=== PATIENT | female | born 1945 | race Caucasian/White ===

== ENCOUNTER → 2023-12-17 07:40 | Outpatient (REF) | payer MEDICARE, SELFPAY | LOC: EMG 07:40 | PROVIDERS: ATTENDING PHYSICIAN Physician Assistant; FAMILY PHYSICIAN Family Medicine | DX: R20.2 Paresthesia of skin (principal); R20.0 Anesthesia of skin; M54.16 Radiculopathy, lumbar region | CPT/HCPCS: 95886; 95911 ==

== ENCOUNTER → 2024-01-15 18:16 | Outpatient (REF) | payer MEDICARE, SELFPAY | LOC: PAVMRI 18:16 | PROVIDERS: ATTENDING PHYSICIAN Physician Assistant; FAMILY PHYSICIAN Family Medicine | DX: M54.16 Radiculopathy, lumbar region (principal) | CPT/HCPCS: 72148 ==

== ENCOUNTER → 2024-02-03 18:28 | Outpatient (REF) | payer MEDICARE, SELFPAY | LOC: MRI 18:28 | PROVIDERS: ATTENDING PHYSICIAN Physician Assistant; FAMILY PHYSICIAN Family Medicine | DX: M54.12 Radiculopathy, cervical region (principal) | CPT/HCPCS: 72141 ==

== ENCOUNTER → 2024-08-30 12:42 | Outpatient (REF) | payer MEDICARE, SELFPAY | LOC: HWRAD 12:42 | PROVIDERS: ATTENDING PHYSICIAN Internal Medicine; FAMILY PHYSICIAN Family Medicine | DX: M81.0 Age-related osteoporosis without current pathological fracture (principal) | CPT/HCPCS: 77080 ==

== ENCOUNTER → 2025-02-06 12:45 | Outpatient (REF) | payer MEDICARE, SELFPAY | LOC: HWRAD 12:45 | PROVIDERS: ATTENDING PHYSICIAN Radiology Radiation Oncology; FAMILY PHYSICIAN Family Medicine | DX: C70.0 Malignant neoplasm of cerebral meninges (principal); R60.9 Edema, unspecified | CPT/HCPCS: 93970 ==

== ENCOUNTER 2025-03-13 20:40 | Inpatient (IN) | payer MEDICARE, SELFPAY ==
[2025-03-13] VITALS (8 sets, daily range): BP systolic 108–171; BP diastolic 72–107; BMI 31.5; BMI 29.5
--- NOTE | 2025-03-13 15:45 | CM ---
ED CM received message from [facility] nurse who completed home visit today
Pt has expressed interest in hospice to visiting nurse
Hospice eval completed in the past and family was not ready for pt to sign onto hospice
[2025-03-13 16:05] LABS: ALT (SGPT) 61 U/L (0-35); AST (SGOT) 28 U/L (14-36); Albumin 3.5 g/dl (3.5-5.0); Alkaline Phosphatase 48 U/L (38-126); Blood Urea Nitrogen 31 mg/dl (7-17); Calcium 9.1 mg/dl (8.4-10.2); Carbon Dioxide 30 mmol/L (22-30); Chloride 102 mmol/L (98-107); Glucose 124 mg/dl (70-99); Hematocrit 37.0 % (37.0-47.0); Hemoglobin 12.5 g/dL (12.0-16.0); Mean Corp Hgb Conc. 33.8 g/dL (33.0-37.0); Mean Corpuscular Volume 96.1 fL (81.0-99.0); Nucleated Red Blood Cells % 0 %; Platelet Count 277 10^3/uL (130-400); Potassium 4.1 mmol/L (3.5-5.1); Red Cell Dist. Width 12.9 % (11.5-14.5); Sodium 134 mmol/L (135-145); Total Protein 5.8 g/dl (6.3-8.2); eGFR > 60.00
--- NOTE | 2025-03-13 16:34 | PTCARENOTE ---
patient 87-88% on RA with increased respiratory effort, patient states she has COPD but is typically in the low 90s. 2L NC applied, mild improvement to 90-92% noted.
--- NOTE | 2025-03-13 16:59 | ED.GENMED ---
History of Present Illness
<Mandi Diaz PA-C - Last Filed: 03/14/25 14:50>
General
Chief Complaint: Breathing Problem
Source: patient
Exam Limitations: none
Time Seen by Provider: 03/13/25 16:37
Nursing documentation reviewed up to this point in time: agreed with
History of Present Illness
History of Present Illness:
Patient is a 79-year-old female with history hypertension, hypothyroid, COPD, grade 3 meningioma who presents to the emergency department with shortness of breath. She describes acutely worsening shortness of breath over the past few days, feels
similar to prior COPD exacerbations. She has been using her nebulizers at home without any improvement in symptoms. She denies any associated fever, chills, productive cough. No exertional chest pain. No pleuritic chest pain.
Patient is on Avastin treatment currently for grade 3 meningioma. She is on 2 mg p.o. Decadron twice daily.
Patient was recently admitted at [facility] where she had negative ultrasounds of lower extremities and PE study. She was treated for a COPD exacerbation and bronchitis.
Past History
<Mandi Diaz PA-C - Last Filed: 03/14/25 14:50>
Past History
ED Past Medical History: COPD, HTN and Hypothyroidism
ED Past Surgical History: Gynecological and Orthopedic
Social History
Tobacco: Former smoker
Alcohol: None
Drug: None
Review of Systems
<Mandi Diaz PA-C - Last Filed: 03/14/25 14:50>
Review of Systems
Allergies reviewed?: Yes
All Other Systems: ROS reviewed and negative except as documented in HPI and ROS
Phy Exam
<Mandi Diaz PA-C - Last Filed: 03/14/25 14:50>
Physical Exam
Physical Exam:
Vitals: Tachycardic, tachypneic, hypoxic. Afebrile
General: Patient is tachypneic
Skin: Warm and dry, no rashes or lesions
Head: Normocephalic, atraumatic
Eyes: Sclera nonicteric. EOMs intact. No nystagmus.
Throat: Protecting airway
Neck: Normal ROM, no cervical spine tenderness, no meningismus
Cardiac: Tachycardic, normal rhythm, no murmurs.
Pulm: Mildly hypoxic, placed on 2 L O2, tachypneic with increased work of breathing. Very diminished breath sounds bilaterally with significant expiratory wheeze
Abdomen: No abdominal tenderness.
Extremities: 2+ bilateral lower extremity pitting edema with weeping. No evidence of cyanosis.
Neuro: AAOx3. Grossly intact.
Psychiatric: Normal affect.
Scores
<Mandi Diaz PA-C - Last Filed: 03/14/25 14:50>
Heart Failure Risk
Heart Failure Risk Score: Not Applicable
Sepsis
<Mandi Diaz PA-C - Last Filed: 03/14/25 14:50>
Sepsis Screening
Sepsis Assessment: Sepsis Ruled Out
Sepsis Screen
Sepsis Screen: Sepsis Ruled Out
Date: 03/13/25
Time: 19:00
Course
<Mandi Diaz PA-C - Last Filed: 03/14/25 14:50>
Orders/Labs/Results
Orders:
Orders
03/13/25 Dinner
Regular
At Your Request: Full Participation
03/13/25 15:21
CR Chest - 2 Views Urgent
Comment:
Reason For Exam: SOB, hx of COPD
03/13/25 15:23
Electrocardiogram (*1) Urgent
Reason for Study: Shortness of Breath
EKG- Treatment ONCE
03/13/25 15:35
Complete Blood Count/With Diff Urgent
Comprehensive Metabolic Panel Urgent
NT-proBNP Urgent
03/13/25 16:45
Dexamethasone Sod Phosphate [Decadron] 6 mg IV NOW STA
Ipratropium/Albuterol Sulfate [Duoneb] 3 ml INH R NOW STA
03/13/25 16:51
Albuterol Sulfate [Ventolin Nebules] 10 mg INH R NOW STA
Ipratropium Nebs [Atrovent Nebules] 1 mg INH R NOW STA
03/13/25 17:25
D-Dimer Urgent
Troponin I Urgent
03/13/25 19:29
Doxycycline [Vibramycin] 100 mg PO NOW STA
Ipratropium/Albuterol Sulfate [Duoneb] 3 ml INH R NOW STA
03/13/25 20:22
Admit/Transfer Patient As Directed
Co-Sign Provider:
Level of Care: Inpatient admission
Assign to:: Medical/Surgical
Physician / Group: alanis
Diagnosis: acute copd exacerbation
Reason for Hospitalization: acute copd exacerbation
Expected length of stay greater than two midnights?: Yes
ELOS- Estimated Length of Stay in days: 2
I certify the patient meets the requirements for IP care: Yes
Code Status As Directed
Resuscitation Status: Do not resuscitate
Reached after discussion with pt or family/Healthcare POA: Yes
PRN Pain Medication Management As Directed
May give lesser potent ordered pain med per pt: Yes
preference::
Protocol:: Medication orders for pain may be administered in a
manner that supports deferring to patient preference
when the pt is:
- Requesting an ordered lesser potent pain medication.
Least to most potent pain medications are defined
as: acetaminophen < NSAID < tramadol < opioids
(morphine, oxycodone, hydromorphone).
- Requesting a lesser dose of the same medication IF
ORDERED.
- Requesting a less intrusive route of administration
if both routes are prescribed by the provider (PO <
IV).
03/13/25 20:23
DNR Bracelet Application ONCE
03/13/25 22:06
Alprazolam [Xanax] 0.25 mg PO HS PRN
Amlodipine [Norvasc] 5 mg PO HS
Hydrochlorothiazide [Oretic] 12.5 mg PO HS
03/13/25 22:06
WOUND/OSTOMY CONSULT Routine
Reason for Consult: edema blistering
Activity As Directed
Activity Level: As Tolerated
Vital Signs As Directed
Frequency: Per unit guidelines
DX Deep Vein Thrombosis Video Routine
03/14/25 00:00
Dexamethasone Sod Phosphate [Decadron] 4 mg IV Q8
03/14/25 06:00
Levothyroxine [Synthroid] 100 mcg PO DAILY@0600
03/14/25 06:33
Complete Blood Count/With Diff IN AM
Comprehensive Metabolic Panel IN AM
03/14/25 08:00
Budesonide [Pulmicort] 0.5 mg INH R BID
Budesonide/Formoterol 160/4.5 [Symbicort 160/4.5 Mcg Inhaler] 2 puff INH R BID
Heparin 5,000 units SC Q12
Ipratropium/Albuterol Sulfate [Duoneb] 3 ml INH R QID
Levetiracetam [Keppra] 750 mg PO BID
Nicotine [Nicoderm Transdermal] 14 mg TRANSDERM DAILY
03/14/25 18:00
Azithromycin [Zithromax] 500 mg PO QPM
Cholecalciferol (Vitamin D3) [VITAMIN D3 (cholecalciferol)] 25 mcg PO QPM
Cyanocobalamin [Vitamin B-12] 1,000 mcg PO QPM
03/14/25 22:00
Magnesium Oxide 400 mg PO HS
Pantoprazole [Protonix] 40 mg PO HS
Abnormal Lab Results
03/13/25 03/13/25
15:35 17:25
WBC 16.4 H 10^3/uL
(4.8-10.8)
RBC 3.85 L 10^6/uL
(4.20-5.40)
MCH 32.5 H pg
(27.0-31.0)
Abs Immat Gran (auto) 0.7 H 10^3/uL
(0-0.05)
Absolute Neuts (auto) 12.7 H 10^3/uL
(1.4-6.5)
Absolute Monos (auto) 1.5 H 10^3/uL
(0.1-0.6)
Immature Gran % 4.0 H %
(0-0.5)
Neutrophils % 77.5 H %
(42.2-75.2)
Lymphocytes % 8.4 L %
(20.5-51.1)
D-Dimer 0.56 H ug/mlFEU
(0.00-0.50)
Sodium 134 L mmol/L
(135-145)
BUN 31 H mg/dl
(7-17)
Glucose 124 H mg/dl
(70-99)
ALT 61 H U/L
(0-35)
Total Protein 5.8 L g/dl
(6.3-8.2)
03/13/25 15:35
03/13/25 15:35
Vital Signs
Initial and Last Documented VS:
Initial Vital Signs
Temp Pulse Resp BP Pulse Ox
98.3 F 109 24 129/85 95
03/13/25 15:15 03/13/25 15:15 03/13/25 15:15 03/13/25 15:15 03/13/25 15:15
Last Documented Vital Signs
Temp Pulse Resp BP Pulse Ox
97 F 97 16 132/86 97
03/14/25 11:09 03/14/25 11:43 03/14/25 11:11 03/14/25 11:43 03/14/25 11:11
<Freddie Mathis, - Last Filed: 03/13/25 19:50>
Orders/Labs/Results
Orders:
Orders
03/13/25 Dinner
Regular
At Your Request: Full Participation
03/13/25 15:21
CR Chest - 2 Views Urgent
Comment:
Reason For Exam: SOB, hx of COPD
03/13/25 15:23
Electrocardiogram (*1) Urgent
Reason for Study: Shortness of Breath
EKG- Treatment ONCE
03/13/25 15:35
Complete Blood Count/With Diff Urgent
Comprehensive Metabolic Panel Urgent
NT-proBNP Urgent
03/13/25 16:45
Dexamethasone Sod Phosphate [Decadron] 6 mg IV NOW STA
Ipratropium/Albuterol Sulfate [Duoneb] 3 ml INH R NOW STA
03/13/25 16:51
Albuterol Sulfate [Ventolin Nebules] 10 mg INH R NOW STA
Ipratropium Nebs [Atrovent Nebules] 1 mg INH R NOW STA
03/13/25 17:25
D-Dimer Urgent
Troponin I Urgent
03/13/25 19:29
Doxycycline [Vibramycin] 100 mg PO NOW STA
Ipratropium/Albuterol Sulfate [Duoneb] 3 ml INH R NOW STA
03/13/25 20:22
Admit/Transfer Patient As Directed
Co-Sign Provider:
Level of Care: Inpatient admission
Assign to:: Medical/Surgical
Physician / Group: alanis
Diagnosis: acute copd exacerbation
Reason for Hospitalization: acute copd exacerbation
Expected length of stay greater than two midnights?: Yes
ELOS- Estimated Length of Stay in days: 2
I certify the patient meets the requirements for IP care: Yes
Code Status As Directed
Resuscitation Status: Do not resuscitate
Reached after discussion with pt or family/Healthcare POA: Yes
PRN Pain Medication Management As Directed
May give lesser potent ordered pain med per pt: Yes
preference::
Protocol:: Medication orders for pain may be administered in a
manner that supports deferring to patient preference
when the pt is:
- Requesting an ordered lesser potent pain medication.
Least to most potent pain medications are defined
as: acetaminophen < NSAID < tramadol < opioids
(morphine, oxycodone, hydromorphone).
- Requesting a lesser dose of the same medication IF
ORDERED.
- Requesting a less intrusive route of administration
if both routes are prescribed by the provider (PO <
IV).
03/13/25 20:23
DNR Bracelet Application ONCE
03/13/25 22:06
Alprazolam [Xanax] 0.25 mg PO HS PRN
Amlodipine [Norvasc] 5 mg PO HS
Hydrochlorothiazide [Oretic] 12.5 mg PO HS
03/13/25 22:06
WOUND/OSTOMY CONSULT Routine
Reason for Consult: edema blistering
Activity As Directed
Activity Level: As Tolerated
Vital Signs As Directed
Frequency: Per unit guidelines
DX Deep Vein Thrombosis Video Routine
03/14/25 00:00
Dexamethasone Sod Phosphate [Decadron] 4 mg IV Q8
03/14/25 06:00
Levothyroxine [Synthroid] 100 mcg PO DAILY@0600
03/14/25 06:33
Complete Blood Count/With Diff IN AM
Comprehensive Metabolic Panel IN AM
03/14/25 08:00
Budesonide [Pulmicort] 0.5 mg INH R BID
Budesonide/Formoterol 160/4.5 [Symbicort 160/4.5 Mcg Inhaler] 2 puff INH R BID
Heparin 5,000 units SC Q12
Ipratropium/Albuterol Sulfate [Duoneb] 3 ml INH R QID
Levetiracetam [Keppra] 750 mg PO BID
Nicotine [Nicoderm Transdermal] 14 mg TRANSDERM DAILY
03/14/25 18:00
Azithromycin [Zithromax] 500 mg PO QPM
Cholecalciferol (Vitamin D3) [VITAMIN D3 (cholecalciferol)] 25 mcg PO QPM
Cyanocobalamin [Vitamin B-12] 1,000 mcg PO QPM
03/14/25 22:00
Magnesium Oxide 400 mg PO HS
Pantoprazole [Protonix] 40 mg PO HS
Abnormal Lab Results
03/13/25 03/13/25
15:35 17:25
WBC 16.4 H 10^3/uL
(4.8-10.8)
RBC 3.85 L 10^6/uL
(4.20-5.40)
MCH 32.5 H pg
(27.0-31.0)
Abs Immat Gran (auto) 0.7 H 10^3/uL
(0-0.05)
Absolute Neuts (auto) 12.7 H 10^3/uL
(1.4-6.5)
Absolute Monos (auto) 1.5 H 10^3/uL
(0.1-0.6)
Immature Gran % 4.0 H %
(0-0.5)
Neutrophils % 77.5 H %
(42.2-75.2)
Lymphocytes % 8.4 L %
(20.5-51.1)
D-Dimer 0.56 H ug/mlFEU
(0.00-0.50)
Sodium 134 L mmol/L
(135-145)
BUN 31 H mg/dl
(7-17)
Glucose 124 H mg/dl
(70-99)
ALT 61 H U/L
(0-35)
Total Protein 5.8 L g/dl
(6.3-8.2)
03/13/25 15:35
03/13/25 15:35
Vital Signs
Initial and Last Documented VS:
Initial Vital Signs
Temp Pulse Resp BP Pulse Ox
98.3 F 109 24 129/85 95
03/13/25 15:15 03/13/25 15:15 03/13/25 15:15 03/13/25 15:15 03/13/25 15:15
Last Documented Vital Signs
Temp Pulse Resp BP Pulse Ox
97 F 97 16 132/86 97
03/14/25 11:09 03/14/25 11:43 03/14/25 11:11 03/14/25 11:43 03/14/25 11:11
<Mandi Diaz PA-C - Last Filed: 03/14/25 14:50>
MDM/Problems Addressed
Differential Diagnosis Includes:
Not limited to: Acute COPD exacerbation, bronchitis, pneumonia, pleural effusion, pulmonary embolism, etc.
MDM/Problems Addressed:
79-year-old female with history as documented with acute COPD exacerbation. Progressively worsening dyspnea over the past few days, not responding to nebulizer at home. No fever or productive cough. No exertional chest pain. Patient is on steroids
for brain tumor. Recent admission at [facility] for similar symptoms with negative workup for DVT in bilateral lower legs or pulmonary embolism.
Vitals and physical exam as above.
Differential includes COPD exacerbation, bronchitis, pneumonia. Less likely pulmonary embolism, however, would be on differential with hypoxia. Less likely acute cardiac process.
Labs sent prior to my evaluation significant for leukocytosis. Chemistry without any clinically significant abnormalities. Chest x-ray without acute findings.
ED plan: Will add on troponin and d-dimer. Will give hour long nebulizer, IV steroids and reassess.
Update: Troponin undetectable. D-dimer age adjusted normal. Patient still with significant wheezing and diminished breath sounds despite neb/steroids. Clinical picture most consistent with acute COPD exacerbation. Suspect leukocytosis secondary to
steroid use. Patient will require admission for further management. Accepted to hospitalist service in stable condition.
Chronic conditions affecting care:
COPD, hypertension, grade 3 meningioma
Acute Exacerbation and/or Progression of Chronic Illness:
Acute COPD exacerbation
<Mandi Diaz PA-C - Last Filed: 03/14/25 14:50>
*Radiology
Radiology exam reviewed: radiology read reviewed
*Pulse Oximetry
SaO2: 88
Oxygen Mode of Delivery: Room air
Patient hypoxic: yes
*EKG
Interpreted by ED Provider?: Yes
EKG Intrepretation Date: 03/13/25
Interpretation: abnormal
Comparison EKG: no comparison EKG present
Heart Rate: 102
Rate: tachycardiac
Rhythm: sinus
[place]: normal axis
Interval: normal QT interval
QRS Pattern: normal QRS
Ischemia: non-specific ST changes
*Flight Service Agent Interpretation
Rate: normal
Interpretation: normal
Heart Rate: 88
Rhythm: sinus
*Critical Care Note
Total Time (30-74mins, 75-104mins- exclusive of procedures): Not Applicable
<Mandi Diaz PA-C - Last Filed: 03/14/25 14:50>
Patient Management
Discussion with other providers: Hospitalist
Escalation/DeEscalation of care consider admission/obs:
Admitted for acute COPD exacerbation
ED Attending Note
<Mandi Diaz PA-C - Last Filed: 03/14/25 14:50>
-
Portions of this chart may have been created with voice recognition software.� Occasional wrong word or��sound alike� substitutions may have occurred due to the inherent limitations of voice recognition software.
<Freddie Mathis DO - Last Filed: 03/13/25 19:50>
ED Attending Note
Patient seen and examined by attending physician: Yes
I performed the substantive portion of visit, reviewed & personally made and approve the management plan that is documented in note by myself or JAYLENE.: Yes
ED Attending Note:
I agree with Suzan's note.
Patient presents with shortness of breath that has not improved with nebs at home. Patient has a known history of COPD. She is followed by pulmonary at [facility].
No fever or chills. She has a cough which is not productive. Patient also being treated for a meningioma. She has had surgery as well as proton therapy. She does take steroids for the brain tumor.
General: Awake, Alert, Oriented X3. Mild to moderate increased work of breathing
Vitals: unremarkable
Head: Atraumatic
Eyes: Pupils equal, EOMI
Throat: Airway intact, no exudates
Neck: Trachea midline
Lungs: Decreased present bilaterally, 3 weeks bilateral
Heart: Regular rate, no murmurs
Abd: Soft, Nontender, No pulsatile mass
Extremities: pulses equal b/l, 3+ edema
Imaging shows chronic changes but nothing acute. Labs show elevated white count which may very well be secondary to chronic steroid use. Remainder labs are unremarkable. Patient still wheezing despite hour-long neb, steroids. Will require
hospitalization for further management
Discharge Plan
Departure
Patient Disposition: Admit
Date of Disposition: 03/13/25
Time of Disposition: 19:29
Presentation/result/management discussed w/ accepting MD/DO: Hospitalist
Discharge Problem:
COPD with acute exacerbation
Interventions
Interventions:
*Risk Screen - Suicide Last Done: 03/13/25 22:30
*General Assessment Last Done: 03/13/25 15:15
*Neglect/Abuse Screening Last Done: 03/13/25 15:15
*ED COVID-19 Vaccine History Last Done: 03/13/25 22:30
*Nursing Disposition Last Done: 03/13/25 21:58
ED- Cardiac Assessment Last Done: 03/13/25 16:37
ED- Pulmonary Assessment Last Done: 03/13/25 16:33
Discharge Date and Time
Discharge Date/Time: 03/13/25 22:01
[2025-03-13] MEDS: ATROVENT NEBULES 1 MG INH (17:27)
[2025-03-13] MEDS: VENTOLIN NEBULES 10 MG INH (17:27)
[2025-03-13] MEDS: DECADRON 6 MG IV (17:38)
[2025-03-13 18:01] LABS: D-Dimer 0.56 ug/mlFEU (0.00-0.50)
[2025-03-13 18:13] LABS: Troponin I < 0.012 ng/ml
[2025-03-13] MEDS: DUONEB 3 ML INH (20:08)
[2025-03-13] MEDS: VIBRAMYCIN 100 MG PO (20:08)
--- NOTE | 2025-03-13 20:27 | HPS.HSE ---
Family Physician
-
Family Physician: Gris Guidry MD
Chief Complaint
-
shortness of breath
History of Present Illness
79-year-old female past medical history of hypertension, hypothyroidism, COPD, grade 3 meningioma on Avastin/dexamethasone presenting to emergency room for shortness of breath.
Patient was diagnosed with meningioma last year and underwent craniotomy and had a reoccurrence this year. She is on dexamethasone and a Avastin. Since starting the dexamethasone she has developed lower extremity edema with edema blistering.
She went to [place] for her a Avastin treatment a week ago and was noted to be short of breath during the treatment. Had CT PE which was unremarkable and she was diagnosed with acute bronchitis and treated with nebulizers and Bactrim which she has
taken for 4 days.
She has cough which is nonproductive. Denies any fevers or chills. Denies chest pain. She does not use oxygen at home.
Patient was recently admitted at [place] where she had negative ultrasounds of lower extremities and PE study.
She is having insomnia and occasionally panic attacks which may be secondary to shortness of breath at night.
She continues to smoke at least a pack of cigarettes a day. Denies alcohol.
Medical History
Past Medical History
Past Medical History: Reports Other (hypertension, hypothyroidism, COPD, grade 3 meningioma on Avastin/dexamethasone)
Past Surgical History: Reports None
Social History
Tobacco: Smoker
Alcohol: None
Drug: None
Family History
Family History: Not pertinent
Allergies / Home Medications
Allergies reflects when Allergies were last updated in [facility].
Home Medications with original date entered in [facility]
Allergy/Medication List:
Allergies
Allergy/AdvReac Type Severity Reaction Status Date / Time
No Known Allergies Allergy Unverified 08/17/18 06:30
Home Medications
fluticasone furoate 200 mcg-vilanterol 25 mcg/dose inhalation powder (Breo Ellipta) 1 inh inhalation R HS 02/26/19
ipratropium 0.5 mg-albuterol 3 mg (2.5 mg base)/3 mL nebulization soln 3 ml inhalation R QID 08/17/18
levothyroxine 100 mcg tablet (Synthroid) 100 mcg PO HS 08/17/18
amlodipine 5 mg tablet (Norvasc) 5 mg PO HS 03/13/25
azithromycin 250 mg tablet 250 mg PO QPM 03/13/25
budesonide 0.5 mg/2 mL suspension for nebulization 0.5 mg inhalation R BID 03/13/25
cholecalciferol (vitamin D3) 25 mcg (1,000 unit) tablet (Vitamin D3) 25 mcg PO QPM 03/13/25
cyanocobalamin (vitamin B-12) 1,000 mcg tablet 1,000 mcg PO QPM 03/13/25
dexamethasone 2 mg tablet 2 mg PO BID 03/13/25
hydrochlorothiazide 12.5 mg tablet 12.5 mg PO HS 03/13/25
lansoprazole 30 mg capsule,delayed release 30 mg PO HS 03/13/25
levetiracetam 750 mg tablet (Keppra) 750 mg PO BID 03/13/25
magnesium oxide 400 mg PO HS 03/13/25
sulfamethoxazole 400 mg-trimethoprim 80 mg tablet (Bactrim) 1 tab PO DAILY nursing home 03/13/25
Review of Systems
-
History Source: Patient
A 12 point ROS was completed and negative except as noted: Yes
Constitutional: Reports No Symptoms
EENT: Reports No Symptoms
Respiratory: Reports See HPI
Cardiac: Reports No Symptoms
Abdomen/GI: Reports No Symptoms
: Reports No Symptoms
Musculoskeletal: Reports No Symptoms
Skin: Reports No Symptoms
Neurological: Reports No Symptoms
Endocrine: Reports No Symptoms
Hematologic/Lymphatic: Reports No Symptoms
Psych: Reports No Symptoms
Physical Exam
Vital Signs
Vital Signs
Temp Pulse Resp BP Pulse Ox
98.3 F 98 23 108/84 95
03/13/25 15:15 03/13/25 19:45 03/13/25 19:45 03/13/25 19:00 03/13/25 19:45
Physical Exam
General: Well Developed, Well Nourished and No Apparent Distress
HEENT: NormoCephalic, Moist mucous membranes and Atraumatic
Respiratory: Wheezes
Cardiac: S1/S2 and Regular Rhythm; No Murmur or Rub
GI: Soft, Non Tender, Non Distended and Normal Bowel Sounds; No Organomegaly
Rectal: Deferred by Provider
Musculoskeletal: No Clubbing, No Cyanosis and No Edema
Skin: No Rash
Neuro: Nonfocal/grossly intact
Laboratory Results
-
03/13/25 15:35
03/13/25 15:35
Laboratory Results
Total Bilirubin 0.3 mg/dl (0.2-1.3) 03/13/25 15:35
AST 28 U/L (14-36) 03/13/25 15:35
ALT 61 U/L (0-35) H 03/13/25 15:35
Alkaline Phosphatase 48 U/L (38-126) 03/13/25 15:35
Troponin I < 0.012 ng/ml 03/13/25 17:25
Data Reviewed
-
Lab Data: Labs Reviewed by me
Old Records: Reviewed
Impression/Plan
-
IMPRESSION:
PLAN:
#Acute COPD exacerbation
-Chest x-ray showed no acute cardiopulmonary process
- DuoNebs, dexamethasone 4 mg every 8
-Continue Breo
-Continue budesonide
- Stop Bactrim
- Increase azithromycin from 250 mg to 500 daily for acute COPD exacerbation
# Anxiety/panic attacks and insomnia
- As needed Xanax
# Edema blistering secondary to steroids
- Wound care
Essential hypertension
- Continue hydrochlorothiazide
- Continue amlodipine
Hypothyroidism
- Continue levothyroxine
Grade 3 meningioma
- On Avastin
- Continue Keppra
Active smoker
- Nicotine patch
GERD
- Continue lansoprazole
DNR/DNI
DVT prophylaxis-heparin
Regular diet
--- NOTE | 2025-03-13 22:30 | TRANSFER ---
Pt arrived from ED by stretcher. slip seat coverer to bed. AAOx3. VSS. 2L O2 satting at 95%. Wound care done to left lower leg. Daughter at bedside to help answer admission questions. Call patel within reach.
--- NOTE | 2025-03-13 22:59 | PTCARENOTE ---
Pt is ordered Keppra 750 mg BID. Next dose of Keppra due at 0800. Questioned pt about receiving a dose of Keppra in the ED, pt stated she had not. TT house provider for bedtime dose. See MAR.
[2025-03-13] MEDS: NORVASC 5 MG PO (23:00)
[2025-03-13] MEDS: XANAX 0.25 MG PO (23:00)
[2025-03-13] MEDS: DECADRON 4 MG IV (23:01)
[2025-03-13] MEDS: ORETIC 12.5 MG PO (23:01)
[2025-03-14] MEDS: KEPPRA 750 MG PO ×3 (00:04→20:48)
--- NOTE | 2025-03-14 01:44 | PTCARENOTE ---
Pt called to complain of SOB. Took a pulse ox, reading of 95% on 2L. Pt very anxious, coughing, and wanting to sit on the side of the bed. Turned O2 up to 4L to make pt comfortable. SLICING MACHINE OPERATOR TT for a one time neb treatment. SLICING MACHINE OPERATOR to bedside to assess pt, pt
agrees to a dose of morphine. See MAR.
[2025-03-14] MEDS: MORPHINE SULFATE 1 MG IV ×2 (02:21→21:44)
--- NOTE | 2025-03-14 02:31 | W.PN.UPDATE ---
Update Note
Progress Note Update
Called to see patient, severe SOB, on 2L NC sat 95%. Patient w/expiratory wheeze, very diminished, rhonchi, fine crackles b/l base.
Ordered Duonebs, Morphine 1 mg, and Lasix 20 mg x 1 dose. Requested purewick be placed during diuresis.
Patient re-evaluated, appears more comfortable, in bed resting.
[2025-03-14] MEDS: LASIX 20 MG IV ×2 (02:42→11:43)
[2025-03-14] MEDS: DUONEB 3 ML INH ×5 (02:44→20:03)
[2025-03-14 06:00] VITALS: BMI 29.9
[2025-03-14] MEDS: SYNTHROID 100 MCG PO (06:05)
[2025-03-14 07:00] LABS: Hematocrit 39.8 % (37.0-47.0); Hemoglobin 13.5 g/dL (12.0-16.0); Mean Corp Hgb Conc. 33.9 g/dL (33.0-37.0); Mean Corpuscular Volume 95.2 fL (81.0-99.0); Nucleated Red Blood Cells % 0 %; Platelet Count 294 10^3/uL (130-400); Red Cell Dist. Width 12.8 % (11.5-14.5)
[2025-03-14] MEDS: PULMICORT 0.5 MG INH ×2 (07:16→20:03)
[2025-03-14] MEDS: SYMBICORT 160/4.5 MCG INHALER 2 PUFF INH (07:16)
[2025-03-14 07:18] LABS: ALT (SGPT) 66 U/L (0-35); AST (SGOT) 33 U/L (14-36); Albumin 4.0 g/dl (3.5-5.0); Alkaline Phosphatase 54 U/L (38-126); Blood Urea Nitrogen 29 mg/dl (7-17); Calcium 9.4 mg/dl (8.4-10.2); Carbon Dioxide 31 mmol/L (22-30); Chloride 100 mmol/L (98-107); Estimated Creatinine Clearance 57 ml/min; Glucose 136 mg/dl (70-99); Potassium 3.9 mmol/L (3.5-5.1); Sodium 137 mmol/L (135-145); Total Protein 6.7 g/dl (6.3-8.2); eGFR > 60.00
[2025-03-14 07:50] VITALS: BP 130/88
[2025-03-14] MEDS: DECADRON 4 MG IV ×2 (08:04→15:58)
[2025-03-14] MEDS: HEPARIN 5000 UNITS SC (08:04)
--- NOTE | 2025-03-14 08:07 | VNURNOTE ---
Chart reviewed. Patient is current with [facility]. Will continue to follow hospital course and DC plans.
--- NOTE | 2025-03-14 08:19 | W.PN.HOSP.TC ---
Addendum entered and electronically signed by Tristan Brown MD 03/15/25 13:42:
treat for copd exacterbation
hospice consult
Original Note:
Today's Communication/Plan
-
Wound care
PT/OT
Continue steroids and antibiotics
Assessment / Plan
Assessment / Plan
Impression
Patient is a 79-year-old female with past medical history of essential hypertension, hypothyroidism, current smoker, COPD, under treatment for grade 3 meningioma who presented with acute exacerbation of COPD.
Assessment/plan
#Acute exacerbation of COPD
Patient has known history of smoking and is currently smoking at least 1 pack of cigarettes a day
Recent episode of acute bronchitis last week for which she was being treated with Bactrim-no improvement-antibiotic changed to 500 mg azithromycin
Uses nebulizers at home
Continue IV steroids which have been helping her and breathing better
Continue DuoNebs, budesonide and Breo Ellipta
Wean off oxygen as able-maintain oxygen saturation around 88 to 90%
PT/OT
Continue to monitor BMPs
#Swelling of legs/blistering
Patient reports improvement-could be secondary to Lasix that was given last night for breathing issues
Continue wound care
#Anxiety/panic attacks
Patient has history of anxiety and had a panic attack last night as per nursing
Received morphine last night that helped her calm down
Add Xanax as needed which the patient takes at home
#Other medical conditions
#Essential hypertension
Continue home medications and monitor blood pressure
#Hypothyroidism
Continue levothyroxine, check TSH
#Grade 3 meningioma
History of craniotomy last year, currently being treated at [facility] with Avastin and Keppra
#Active smoker-on nicotine patch
#GERD-continue lansoprazole
DVT prophylaxis-heparin
CODE STATUS-DNR
Anticipated Discharge: 24 - 48 hours
Subjective/Interval History
-
Date of Service: March 14, 2025
Patient seen and examined at bedside
Patient has hoarseness of voice, cough and shortness of breath.. Feels a lot better than yesterday
Also reports improvement in leg swelling since yesterday
Objective Data
-
Labs:
Laboratory Results
03/14/25
06:33
WBC 14.1 H
Hgb 13.5
Hct 39.8
Plt Count 294
Sodium 137
Potassium 3.9
Chloride 100
Carbon Dioxide 31 H
BUN 29 H
Creatinine 0.7
Glucose 136 H
Calcium 9.4
Total Bilirubin 0.4
AST 33
ALT 66 H
Alkaline Phosphatase 54
Vital Signs:
Vital Signs
Temp Pulse Resp BP Pulse Ox
97 F 81 12 130/88 97
03/14/25 07:50 03/14/25 07:50 03/14/25 07:50 03/14/25 07:50 03/14/25 07:50
I&O
03/13/25 03/14/25 03/15/25
06:59 06:59 06:59
Intake Total 480 / 480
Output Total 950 / 950
Balance -470 / -470
Review of Systems
-
Respiratory: Reports Cough, Trouble Breathing and Wheezing
Physical Exam
-
General: Well Developed, Well Nourished and Conversant (Has bouts of cough during conversation, hoarseness of voice and is breathing on 2 L of oxygen via nasal cannula)
HEENT: Normocephalic and Moist Mucous Membranes
Respiratory: Wheezes and Rhonchi
Cardiac: Regular Rhythm and S1/S2
GI: Soft, Nontender and Normal Bowel Sounds
Musculoskeletal: Edema, Right Lower Extrem, Edema, Left Lower Extrem and Other (Bilateral swelling of legs with erythema and blistering)
Neuro: Awake, AO x 3 and Nonfocal/Grossly Intact
Psych: Anxious
--- NOTE | 2025-03-14 09:48 | WOUNDNOTE ---
[facility] RN NOTE: Reviewed chart and met with patient and daughter at bedside. Patient with multiple draining areas in left upper leg due to increased edema. Feet with +2-+3 edema. Legs and feet dry. Patient needs assistance turning in bed and describes
weak legs. Ambulates with walker at home. Reports fair appetite. Heels and sacrum intact. Patient likes using alginate to open areas. Will recommend local wound care with alginate, MARCELA wrap, and application of static air overlay. Will confirm orders
with Hospitalist. CRISTINA Shultz updated. Will sign off.
--- NOTE | 2025-03-14 10:40 | WOUNDNOTE ---
LEFT UPPER LEG DRAINING AREAS
[2025-03-14 11:09] VITALS: BP 132/86
--- NOTE | 2025-03-14 12:29 | CM ---
Patient seen at bedside
IA Completed
CM consult competed for hospice info - tt [facility] Page referral placed in careport
Patient lives alone in 1 story home, has 24hr private caregivers
CURRENT WITH [facility]
PLOF: independent with walker
DME; Nebulizer, walker, cane, commode, shower chair, wheelchair, grab bars
has had [facility] in past after surgery in Apr 14 at [place]
PCP: Gris Guidry
[facility]
PLAN: Hospice to [facility], CM to continue to follow for needs
--- NOTE | 2025-03-14 12:39 | PTCARENOTE ---
This nurse and a student nurse completed hygiene on this patient. Patient educated about the use of purewick, and we ultimately decided to take it out. Bedside commode placed at bedside. Pt. assist x1/2 out of bed. Static air overlay in place. Call
patel in reach, will continue with current plan of care.
--- NOTE | 2025-03-14 12:48 | HOSPNOTE ---
Addendum entered by Iliana Page RN 03/14/25 13:43:
Spoke with patient and daughter about hospice and the philosophy. The patient's wishes are to go home with hospice and to no longer seek any further medical interventions. I ordered oxygen 5l concentrator for delivery tomorrow. The daughter will be
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 The patient has all other equipment needed. The patient does not wish to return to the hospital. The patient is presently under VN and they were notified of hospice admission tomorrow.
Attending and CM aware of plan. Once patient is home we will sign patient onto hospice services.
Original Note:
Referral received more information to follow.
--- NOTE | 2025-03-14 13:23 | CON.PUL ---
Consultation
Consultation Request
Date/Time Consultation Requested: 03/14/2025
Date/Time Consultation Performed: 03/14/2025
Requesting Provider: Dr. Cardenas
Performing Provider: Dr. Murtaza Nugent
Reason for Consultation: Acute exacerbation of COPD
Medical History
-
History of Present Illness:
79-year-old female with past medical history significant for hypertension, hypothyroidism, COPD, grade 3 meningioma on Avastin and dexamethasone presented to the emergency room complaining of shortness of breath.
Patient has been on dexamethasone and Avastin since this year due to her meningioma recurrence.
Has developed lower extremity edema as blistering.
-
Patient states that she went to [facility] for her Avastin. She was found to be short of breath. CT of the chest was negative for acute abnormalities. She was treated for bronchitis with nebulizers and Bactrim for 4 days.
The cough is nonproductive.
Denies fevers, chills or hemoptysis.
Not usually on oxygen therapy at home.
-
She continues to smoke about a pack cigarettes per day.
Denies illegal drug use or alcohol use. We were consulted on 03/14/2025 for evaluation
Past Medical History
Past Medical History: Other (See assessment and plan)
Social History
Tobacco: Smoker
Alcohol: None
Drug: None
Living: With Family
Family History
Family History: Reviewed & Not Pertinent
Allergies / Home Medications
Allergies
Allergy/AdvReac Type Severity Reaction Status Date / Time
No Known Allergies Allergy Unverified 08/17/18 06:30
Home Medications
�Medication �Instructions �Recorded �Confirmed �Last Taken �Type
fluticasone furoate 200 1 inh inhalation R HS 08/17/18 03/13/25 03/12/25 History
mcg-vilanterol 25 mcg/dose Lung/Breathing Issues
inhalation powder (Breo Ellipta)
ipratropium 0.5 mg-albuterol 3 mg 3 ml inhalation R QID 08/17/18 03/13/25 03/13/25 History
(2.5 mg base)/3 mL nebulization Lung/Breathing Issues
soln
levothyroxine 100 mcg tablet 100 mcg PO HS Thyroid 08/17/18 03/13/25 03/12/25 History
(Synthroid)
amlodipine 5 mg tablet (Norvasc) 5 mg PO HS Blood Pressure 03/13/25 03/13/25 03/12/25 History
azithromycin 250 mg tablet 250 mg PO QPM 03/13/25 03/13/25 03/12/25 History
budesonide 0.5 mg/2 mL suspension 0.5 mg inhalation R BID 03/13/25 03/13/25 03/13/25 History
for nebulization Lung/Breathing Issues
cholecalciferol (vitamin D3) 25 25 mcg PO QPM Supplement 03/13/25 03/13/25 03/12/25 History
mcg (1,000 unit) tablet (Vitamin
D3)
cyanocobalamin (vitamin B-12) 1,000 mcg PO QPM Supplement 03/13/25 03/13/25 03/12/25 History
1,000 mcg tablet
dexamethasone 2 mg tablet 2 mg PO BID Anti-Inflammatory 03/13/25 03/13/25 03/13/25 History
hydrochlorothiazide 12.5 mg tablet 12.5 mg PO HS Blood Pressure 03/13/25 03/13/25 03/12/25 History
lansoprazole 30 mg capsule,delayed 30 mg PO HS Gastrointestinal Issue 03/13/25 03/13/25 03/12/25 History
release
levetiracetam 750 mg tablet 750 mg PO BID Seizures 03/13/25 03/13/25 03/13/25 History
(Keppra)
magnesium oxide 400 mg PO HS Supplement 03/13/25 03/13/25 03/12/25 History
sulfamethoxazole 400 1 tab PO DAILY residential 03/13/25 03/13/25 03/13/25 History
mg-trimethoprim 80 mg tablet prophylaxis
(Bactrim)
Review of Systems
-
History Source: Patient
All other systems: Negative unless noted
Vitals / Labs / Diagnostic Testing
Vital Signs
Temp Pulse Resp BP Pulse Ox
97 F 97 16 132/86 97
03/14/25 11:09 03/14/25 11:43 03/14/25 11:11 03/14/25 11:43 03/14/25 11:11
Lab Data
03/14/25 06:33
03/14/25 06:33
Diagnostic Testing:
Physical Exam
-
HEENT: Normocephalic
Cardiovascular: S1/S2
Respiratory: Wheeze (Bilateral expiratory) and Rhonchi
GI: Soft and Non Distended
Neurology: Awake, Alert and No Motor Deficits
Skin: Warm
General: Comfortable
Assessment
-
79-year-old woman with past medical history noted, admitted with shortness of breath, wheezing. Patient being treated for meningioma without Avastin and dexamethasone which is recurrent. We were consulted for ongoing acute COPD exacerbation
symptoms.
Acute exacerbation of COPD: Likely tracheobronchitis.
Chest x-ray 03/13/2025: Reviewed, without acute abnormalities
Acute respiratory insufficiency currently on 2 L which is new for her.
Conditions present prior admission:
Moderate COPD-emphysema phenotype
Follows Dr. Smith last seen 03/22/2024
DuoNeb/budesonide nebulizer
Azithromycin 250 mg for anti-inflammatory effect
BREO as well. ( tried Trelegy without success) - chronic SOB
6-minute walk testing 03/22/2024: Normal oxygen saturation. Discomfort from back pain.
FEV1 1.24 L - 70% total lung capacity 87%, diffusing capacity 48%.
History of spinal stenosis
History of latent tuberculosis
Anxiety/panic attacks
Chronic insomnia
Edema from chronic dexamethasone use
Hypertension
Hypothyroidism
Grade 3 meningioma craniectomy in the past-recurrence this year on Avastin and dexamethasone
Keppra for seizure prophylaxis
Tobacco abuse pack a day- Ongoing
DNR/DNI status
Assessment and plan:
Acute exacerbation of COPD-likely due to tracheobronchitis. Also ongoing smoking does not help.
Chronically on dexamethasone for her meningioma and Avastin use.
-
Chest x-ray without acute infiltrates
Agree with maintaining nebulizer therapy: DuoNebs 4 times a day, budesonide twice a day
Chronically on low-dose macrolide therapy for anti-inflammatory properties-has been increased to 500 mg to treat tracheobronchitis can complete 5 days of that.
Will obtain a sputum culture
Continue Acapella device
Continue oxygen supplementation to maintain pulse ox above 90%-usually not on oxygen supplementation.
-
Patient reports that due to shortness of breath she underwent recently CT angiogram at [facility] and it was negative for acute abnormalities. No evidence for pulmonary embolism.
Lower extremity Dopplers 01/2025: Negative for DVT.
-
Strongly advised to quit smoking he continues to smoke about a pack per day. Likely not helping her bronchitic symptoms.
-
Will follow.
After DC follow up with Dr. Smith in 2 weeks.
-
Patient states that she would like to b to go home on hospice. She already talked to case management.
She is hoping to get discharged tomorrow.
--- NOTE | 2025-03-14 14:07 | CM ---
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
Once patient is home will sign patient onto hospice services
oxygen concentrator ordered by Kathy
IMM eplained & signed. In chart
notified VN liaison
PLAN: Home with hospice tomorrow
daughter to transport around 11:30am
--- NOTE | 2025-03-14 14:07 | W.PN.UPDATE ---
Update Note
Progress Note Update
Acute exacerbation of COPD
Chronically on dexamethasone for meningioma
Continue MDIs
Pulmonary following
Will obtain sputum culture
Continue incentive spirometer Acapella
Wean oxygen as tolerated
Meningioma
Follows at [facility]
Continue Avastatin and dexamethasone
For home hospice to initiate tomorrow on 03/15
[2025-03-14 15:00] VITALS: BP 127/85
[2025-03-14] MEDS: ZITHROMAX 500 MG PO (17:27)
[2025-03-14] MEDS: VITAMIN B-12 1000 MCG PO (17:27)
[2025-03-14] MEDS: VITAMIN D3 (cholecalciferol) 25 MCG PO (17:28)
[2025-03-14] MEDS: HEPARIN SC (20:48)
--- NOTE | 2025-03-14 21:05 | PTCARENOTE ---
Pt is coughing uncontrollably. Tried to give PO meds and pt choked on pills with water. TT house provider for a scopolamine patch to help with clearing secretions, and for an order of Morphine to help with anxiety and SOB. See MAR.
[2025-03-14 21:27] VITALS: BP 123/84
[2025-03-14] MEDS: ORETIC PO (22:02)
[2025-03-14] MEDS: NORVASC PO (22:02)
[2025-03-14 23:00] VITALS: BP 138/84
[2025-03-15] MEDS: DECADRON 4 MG IV ×2 (00:12→09:43)
--- NOTE | 2025-03-15 02:21 | PTCARENOTE ---
TT house provider for another dose of morphine due to respiratory distress. See MAR.
[2025-03-15] MEDS: MORPHINE SULFATE 1 MG IV (03:01)
[2025-03-15] MEDS: SYNTHROID PO (05:14)
[2025-03-15] MEDS: PULMICORT 0.5 MG INH (07:13)
[2025-03-15] MEDS: DUONEB 3 ML INH ×2 (07:13→11:12)
[2025-03-15 07:20] VITALS: BP 154/92
[2025-03-15 07:47] LABS: Hematocrit 38.6 % (37.0-47.0); Hemoglobin 13.0 g/dL (12.0-16.0); Mean Corp Hgb Conc. 33.7 g/dL (33.0-37.0); Mean Corpuscular Volume 95.8 fL (81.0-99.0); Nucleated Red Blood Cells % 0 %; Platelet Count 328 10^3/uL (130-400); Red Cell Dist. Width 12.6 % (11.5-14.5)
--- NOTE | 2025-03-15 07:51 | W.PN.HOSP.TC ---
Addendum entered and electronically signed by Tristan Brown MD 03/15/25 13:43:
dc home on home hospice
Original Note:
Today's Communication/Plan
-
Discharge home with home hospice
Assessment / Plan
Assessment / Plan
Impression
Patient is a 79-year-old female with past medical history of essential hypertension, hypothyroidism, current smoker, COPD, under treatment for grade 3 meningioma who presented with acute exacerbation of COPD.
Assessment/plan
#Acute exacerbation of COPD secondary to tracheobronchitis
Patient has known history of smoking and is currently smoking at least 1 pack of cigarettes a day
Chronically on low-dose of macrolide therapy for anti-inflammatory properties-dose increased to 500 mg to treat the acute tracheobronchitis
Uses nebulizers at home
Continue IV steroids which have been helping her and breathing better
Continue DuoNebs, budesonide and Breo Ellipta
Wean off oxygen as able-maintain oxygen saturation around 88 to 90%
Pulmonology consult appreciated
PT/OT
Continue to monitor BMPs
Patient discussed with her daughter and the hospice team to be discharged home on home hospice
#Swelling of legs/blistering
Patient reports improvement-Lasix improved swelling of legs that helped with the blistering
Wound care recommendations appreciated
#Anxiety/panic attacks
Add Xanax as needed which the patient takes at home
#Other medical conditions
#Essential hypertension
Continue home medications and monitor blood pressure
#Hypothyroidism
Continue levothyroxine, check TSH
#Grade 3 meningioma- recurrence-Patient wants to do home hospice
History of craniotomy last year, currently being treated at [facility] with Avastin and Keppra
#Active smoker-on nicotine patch
#GERD-continue lansoprazole
As per business case analyst plan to discharge home on home hospice today, daughter to transport
DVT prophylaxis-heparin
CODE STATUS-DNR
Anticipated Discharge: Today
Subjective/Interval History
-
Date of Service: March 15, 2025
Patient seen and examined bedside
Breathing better. Still has lot of wheezes and ronchi
Discussed goals of care yesterday with daughter and hospice team and she wants to go home on hospice
Objective Data
-
Labs:
Laboratory Results
03/15/25
07:06
WBC 17.0 H
Hgb 13.0
Hct 38.6
Plt Count 328
Sodium Pending
Potassium Pending
Chloride Pending
Carbon Dioxide Pending
BUN Pending
Creatinine Pending
Glucose Pending
Calcium Pending
Vital Signs:
Vital Signs
Temp Pulse Resp BP Pulse Ox
97.8 F 95 17 154/92 96
03/15/25 07:20 03/15/25 07:20 03/15/25 07:20 03/15/25 07:20 03/15/25 07:20
I&O
03/14/25 03/15/25 03/16/25
06:59 06:59 06:59
Intake Total 480 / 480 720 / 720
Output Total 950 / 950 1170 / 1170
Balance -470 / -470 -450 / -450
Review of Systems
-
All other systems: Reviewed and negative
Physical Exam
-
General: Well Developed, Well Nourished and Other (Breathing on 2L of oxygen via nasal cannuala, hoarseness of voice)
Respiratory: Wheezes and Rhonchi
Cardiac: Regular Rhythm and S1/S2
GI: Soft, Nontender and Normal Bowel Sounds
Musculoskeletal: Edema, Right Lower Extrem (blistering lesions) and Edema, Left Lower Extrem
Skin: Warm
Neuro: Awake and AO x 3
Psych: Calm
[2025-03-15 08:11] LABS: Blood Urea Nitrogen 43 mg/dl (7-17); Calcium 9.5 mg/dl (8.4-10.2); Carbon Dioxide 34 mmol/L (22-30); Chloride 101 mmol/L (98-107); Estimated Creatinine Clearance 57 ml/min; Glucose 123 mg/dl (70-99); Potassium 3.9 mmol/L (3.5-5.1); Sodium 138 mmol/L (135-145); eGFR > 60.00
[2025-03-15] MEDS: KEPPRA 750 MG PO (09:42)
[2025-03-15] MEDS: HEPARIN SC (09:48)
--- NOTE | 2025-03-15 10:50 | CM ---
Patient discharged today home with Hospice
IMM signed yesterday
PLAN: Home with hospice tomorrow
daughter to transport
--- NOTE | 2025-03-15 11:57 | W.DCSUMMARY ---
Discharge Summary
Discharge Data
Date of Admission: 03/13/25
Date of Discharge: 03/15/25
-
Pending Results: No
Hospital Course
Discharging Physician :
Tristan Brown
Disposition :
Home with Hospice
Primary care physician :
Gris Guidry
Principal Discharge diagnosis :
Acute exacerbation of COPD secondary to tracheobronchitis
Chronic Discharge diagnosis :
hypertension, hypothyroidism, COPD, grade 3 meningioma on Avastin/dexamethasone
Hospital Course :
79-year-old female with past medical history significant for hypertension, hypothyroidism, COPD, grade 3 meningioma on Avastin and dexamethasone presented to the emergency room complaining of shortness of breath.
Patient states that she went to [facility] for her Avastin. She was found to be short of breath. CT of the chest was negative for acute abnormalities. She was treated for bronchitis with nebulizers and Bactrim for 4 days.
Antibiotic changed to azithromycin for treatment of acute tracheobronchitis. Patient was on 2 L of oxygen via nasal cannula which is not the baseline for her.
Chest x-ray did not show any infiltrates
Started on IV dexamethasone, continued Breo Ellipta, DuoNebs, and was given incentive spirometry and Acapella device
Patient reported subjective improvement in her symptoms. Advised her to quit smoking as ongoing smoking will continue to trigger her COPD.
Patient has been under treatment for her meningioma recurrence for which she had been considering hospice, she requested hospice consult during the hospital stay and decided with her family that she wants to go home on hospice, patient discharged
home with hospice.
Important imaging findings :
CXR 03/13/25
No focal consolidation, pleural effusion, or pneumothorax. The cardiomediastinal silhouette is normal. Chronic degenerative changes of the spine. Severe osteoarthrosis of the left glenohumeral joint.
Discharge Plan
-
Patient Disposition: Home with Hospice
Discharge Diagnosis/Procedures: Acute exacerbation of COPD secondary to tracheobronchitis
Condition: Fair
Diet: Regular
Activity: As tolerated
Driving Restrictions: As prior to admission
Bathing Restrictions: OK to Shower
Other Services: Hospice
Activity Restrictions/Additional Instructions:
Wound Care Instructions LE Wounds- Clean open and draining areas with normal saline. Apply alginate to open/draining areas and cover with ABD and wrap with dory. Change BID and PRN drainage.
MARCELA wrap to LE, re-apply daily
Referrals:
Gris Guidry MD [Family Provider, Family Practice] - in less than 1 week
Prescriptions:
New
azithromycin 500 mg tablet
500 mg PO DAILY 3 Days Qty: 3 0RF
Continued
ipratropium-albuterol 0.5 mg-3 mg(2.5 mg base)/3 mL Solution For Nebulization
3 ml INHALATION R QID
levothyroxine [Synthroid] 100 mcg Tablet
100 mcg PO HS
fluticasone furoate-vilanterol [Breo Ellipta] 200-25 mcg/dose Blister With Device
1 inh INHALATION R HS
azithromycin 250 mg Tablet
250 mg PO QPM
cyanocobalamin (vitamin B-12) 1,000 mcg Tablet
1,000 mcg PO QPM
amlodipine [Norvasc] 5 mg Tablet
5 mg PO HS
dexamethasone 2 mg Tablet
2 mg PO BID
lansoprazole 30 mg Capsule,Delayed Release(Dr/Ec)
30 mg PO HS
budesonide 0.5 mg/2 mL Suspension For Nebulization
0.5 mg INHALATION R BID
levetiracetam [Keppra] 750 mg Tablet
750 mg PO BID
cholecalciferol (vitamin D3) [Vitamin D3] 25 mcg (1,000 unit) Tablet
25 mcg PO QPM
hydrochlorothiazide 12.5 mg Tablet
12.5 mg PO HS
magnesium oxide 400 mg magnesium Tablet
400 mg PO HS
Discontinued
sulfamethoxazole-trimethoprim [Bactrim] 400-80 mg Tablet
1 tab PO DAILY
Discharge Orders:
Discharge Patient (As Directed); Ordered 03/15/25
Ordered By: Leticia Kincaid
Discharge Date and Time
Discharge Date/Time: 03/15/25 12:14
Print Language: HEBREW
== END 2025-03-15 12:14 | disposition hospice, home (50) | DRG 192 ==
LOC: 3 WEST ACU 20:40
PROVIDERS: Physician Assistant; Specialist Research Data Abstracter/Coder; ADMITTING PHYSICIAN Hospitalist; ATTENDING PHYSICIAN Hospitalist; CONSULT PHYSICIAN Internal Medicine Critical Care Medicine; EMERGENCY PHYSICIAN Emergency Medicine; FAMILY PHYSICIAN Family Medicine
DX: J44.1 Chronic obstructive pulmonary disease with (acute) exacerbation (principal); E03.9 Hypothyroidism, unspecified; D32.9 Benign neoplasm of meninges, unspecified; J20.9 Acute bronchitis, unspecified; J44.0 Chronic obstructive pulmonary disease with (acute) lower respiratory infection; F17.210 Nicotine dependence, cigarettes, uncomplicated; Z71.6 Tobacco abuse counseling; M19.012 Primary osteoarthritis, left shoulder; Z79.890 Hormone replacement therapy; I10 Essential (primary) hypertension; F41.0 Panic disorder [episodic paroxysmal anxiety]; F51.04 Psychophysiologic insomnia; D49.6 Neoplasm of unspecified behavior of brain; J43.9 Emphysema, unspecified; T38.0X5A Adverse effect of glucocorticoids and synthetic analogues, initial encounter; R60.0 Localized edema; Z79.51 Long term (current) use of inhaled steroids; Z66 Do not resuscitate; Z86.15 Personal history of latent tuberculosis infection; Z79.899 Other long term (current) drug therapy
CPT/HCPCS: 71046; 80048; 80053; 83880; 84484; 85025; 85379; 93005; 94640; 96374; 99285

== ENCOUNTER 2025-04-11 01:50 | Inpatient (IN) | payer MEDICARE, SELFPAY ==
[2025-04-10 23:08] VITALS: BP 96/58
--- NOTE | 2025-04-10 23:15 | ED.GENMED ---
History of Present Illness
General
Chief Complaint: Overdose Intentional
Source: patient, records, family and ambulance crew
Exam Limitations: none
Time Seen by Provider: 04/10/25 23:02
Nursing documentation reviewed up to this point in time: agreed with
History of Present Illness
History of Present Illness:
79-year-old female with a past medical history of COPD, hypertension, hypothyroidism, meningioma presents to the emergency department via EMS after an intentional overdose on acetaminophen. Of note patient is on hospice care for meningioma.
Patient took her normal dose of hospice medications this evening which includes lorazepam and morphine (family unsure of concentration but patient takes 0.5 mL of each). When family left the room apparently patient reached for a bottle of Tylenol
and took the rest of the bottle�she says it was roughly a handful she thinks maybe around 30 tablets. The bottle was for Tylenol arthritis 650 mg per tab, entire bottle contained 225 tabs but apparently was not full. Ingestion occurred at around
9:30 PM. Patient says that she took the medication 'because am tired of it and wanted to .' She denies taking any other medications. Family says she did not have access to the morphine or lorazepam for her to take this in excess. She says
that she feels no acute symptoms�denies feeling nauseated, abdominal pain or any other acute issues.
Past History
Past History
ED Past Medical History: COPD, HTN and Hypothyroidism
ED Past Surgical History: Gynecological and Orthopedic
Social History
Tobacco: Former smoker
Alcohol: None
Drug: None
Review of Systems
Review of Systems
All Other Systems: ROS reviewed and negative except as documented in HPI and ROS
Respiratory: Denies trouble breathing
Cardiac: Denies chest pain
ABD/GI: Denies abdominal pain, nausea or vomiting
Phy Exam
Physical Exam
Physical Exam:
General: Awake, alert, oriented x3; no acute distress
Head: Normocephalic, atraumatic
Eyes: Conjunctiva normal, sclera anicteric
Throat: Airway intact, handling secretions
Neck: Trachea midline, supple without meningismus
Lungs: Clear to auscultation bilaterally, no wheezing, rales, rhonchi
Heart: Regular rate and rhythm, no murmurs, gallops, or rubs
Abd: Soft, non distended, nontender
Neuro: Grossly intact
Skin: Warm and dry
Extremities: Warm well-perfused
Psych: Depressed mood, irritable
Scores
Heart Failure Risk
Heart Failure Risk Score: Not Applicable
Heart Score for Chest Pain Patients
STEMI patient?: Not applicable
Withdrawal Assessment of Alcohol
Withdrawal Assessment Completed?: Not applicable
Course
Orders/Labs/Results
Orders:
Orders
04/10/25 23:01
Electrocardiogram (*1) Urgent
Reason for Study: Other
Other Reason for Exam: Potential overdose
Crisis Consult Urgent
Reason for Consult: SI
Bedside Glucose- Treatment ONCE
Cardiac Monitoring- Treatment ONCE
EKG- Treatment ONCE
IV Insert/Care/Rem.- Treatment PRN
Pulse Ox/spot Check [RESP] Urgent
Quantity: 1
04/10/25 23:13
ED Special Safety Observation ONCE
Observation level: One to Two
04/10/25 23:19
Acetaminophen Urgent
Alcohol Urgent
Complete Blood Count/With Diff Urgent
Comprehensive Metabolic Panel Urgent
Salicylate Urgent
04/10/25 23:40
Acetylcysteine [Acetadote] 10,350 mg 0.45% Sodium Chloride 250 ml [0.45%NaCl] 200 ml IV NOW
04/10/25 23:41
0.9% Sodium Chloride 1000 ml [Nss] 1,000 ml IV BOLUS
04/11/25 00:30
Restraints - Non Violent As Directed
Justification-Patient:: 1-Attempts to remove tube
Restraint Type-: Soft Limb-L&R Wrist/4rail
Apply From (date): 04/11/25
Apply from (time): 00:30
Remove (date): 04/12/25
Remove (time): 23:59
04/11/25 00:58
Ipratropium/Albuterol Sulfate [Duoneb] 3 ml .ROUTE .STK-MED ONE
04/11/25 01:00
Acetylcysteine [Acetadote] 3,450 mg 0.45% Sodium Chloride 500 ml [0.45%NaCl] 500 ml IV ONCE
04/11/25 01:01
Ipratropium/Albuterol Sulfate [Duoneb] 3 ml INH R NOW ONE
04/11/25 01:22
Admit/Transfer Patient As Directed
Co-Sign Provider:
Level of Care: Inpatient admission
Assign to:: ICU
Physician / Group: [facility]
Diagnosis: Intentional Tylenol Overdose
Reason for Hospitalization: Intentional Tylenol Overdose
Expected length of stay greater than two midnights?: Yes
ELOS- Estimated Length of Stay in days: 4
I certify the patient meets the requirements for IP care: Yes
PRN Pain Medication Management As Directed
May give lesser potent ordered pain med per pt: Yes
preference::
Protocol:: Medication orders for pain may be administered in a
manner that supports deferring to patient preference
when the pt is:
- Requesting an ordered lesser potent pain medication.
Least to most potent pain medications are defined
as: acetaminophen < NSAID < tramadol < opioids
(morphine, oxycodone, hydromorphone).
- Requesting a lesser dose of the same medication IF
ORDERED.
- Requesting a less intrusive route of administration
if both routes are prescribed by the provider (PO <
IV).
04/11/25 01:25
Code Status As Directed
Resuscitation Status: Do not resuscitate
Reached after discussion with pt or family/Healthcare POA: Yes
04/11/25 01:26
DNR Bracelet Application ONCE
04/11/25 01:32
Acetaminophen Urgent
04/11/25 05:00
Acetylcysteine [Acetadote] 6,900 mg 0.45% Sodium Chloride 1000 ml [0.45%NaCl] 1,000 ml IV ONCE
Abnormal Lab Results
04/10/25 04/11/25
23:19 01:32
WBC 18.5 H 10^3/uL
(4.8-10.8)
RBC 3.75 L 10^6/uL
(4.20-5.40)
Hct 35.7 L %
(37.0-47.0)
MCH 32.5 H pg
(27.0-31.0)
Plt Count 433 H 10^3/uL
(130-400)
Abs Immat Gran (auto) 0.4 H 10^3/uL
(0-0.05)
Absolute Neuts (auto) 15.3 H 10^3/uL
(1.4-6.5)
Absolute Monos (auto) 1.6 H 10^3/uL
(0.1-0.6)
Immature Gran % 2.1 H %
(0-0.5)
Neutrophils % 82.6 H %
(42.2-75.2)
Lymphocytes % 6.4 L %
(20.5-51.1)
Sodium 131 L mmol/L
(135-145)
Chloride 97 L mmol/L
(98-107)
Carbon Dioxide 32 H mmol/L
(22-30)
BUN 51 H mg/dl
(7-17)
Glucose 171 H mg/dl
(70-99)
ALT 38 H U/L
(0-35)
Total Protein 6.0 L g/dl
(6.3-8.2)
Albumin 3.2 L g/dl
(3.5-5.0)
Salicylates < 1.0 L mg/dl
(2.0-20.0)
Acetaminophen 252 H* ug/ml 188 H* ug/ml
(10-30) (10-30)
04/10/25 23:19
04/10/25 23:19
Vital Signs
Initial and Last Documented VS:
Initial Vital Signs
Temp Pulse Resp BP Pulse Ox
36.9 C 85 18 96/58 98
04/10/25 23:08 04/10/25 23:08 04/10/25 23:08 04/10/25 23:08 04/10/25 23:08
Last Documented Vital Signs
Temp Pulse Resp BP Pulse Ox
36.9 C 73 12 95/76 98
04/10/25 23:08 04/11/25 01:45 04/11/25 01:45 04/11/25 01:37 04/11/25 01:45
MDM/Problems Addressed
Differential Diagnosis Includes:
Intentional overdose
MDM/Problems Addressed:
This is an unfortunate case of a 79-year-old female who is on hospice for meningioma who intentionally overdosed on acetaminophen this evening. Unfortunately this sounds like a significant ingestion with patient estimating she took #30 tabs at 650
mg each. Time of ingestion estimated at 9:30 PM. Vital signs are acceptable, physical exam as above. Unfortunately with this intentional overdose and attempt at self-harm patient does not have decisional capacity to refuse care despite being on
hospice. Plan to initiate treatment�will place IV send labs including a CBC and CMP, Tylenol salicylate levels, alcohol level and UDS. Will check an EKG. Will treat empirically with N-acetylcysteine after this significant ingestion. Patient will
be outside window for benefit of GI decontamination. Will discuss case with toxicology. Plan for medical admission. We will observe patient on continuous observation; I discussed the case with crisis for an assessment. At this point we will hold
patient involuntarily on a 302.
I spoke with the residential interior designer at [facility] to discuss the case�he agreed with starting N-acetylcysteine empirically, will follow-up on 4-hour Tylenol level which would be at 1:30 AM. If this level is near or greater than 150 patient will
require full N-acetylcysteine protocol; residential interior designer also recommended that if the level is greater than 150 at 4 hours that we treat with a one-time dose of fomepizole 15 mg/kg. If level at 4 hours is significantly less than 150 then
N-acetylcysteine theoretically be discontinued and patient medically cleared for psychiatric care.
Initial labs reviewed: CBC shows leukocytosis to 18.5 essentially stable. Chemistry shows fortunately no acidosis, acceptable LFTs. Her acetaminophen level drawn initially was 252-4-hour level due at 1:30 AM but will continue N-acetylcysteine with
plan for fomepizole if it remains greater than 150. 302 filed for psychiatric hold. Clinical reassessment patient with slightly soft blood pressure fluids going. She is not vomiting. She is becoming somewhat lethargic but arousable and
protecting airway. Discussed with hospitalist for admission.
4-hour level 188�will proceed with one-time dose of fomepizole as recommended by toxicology. Continue N-acetylcysteine protocol. Updated hospitalist.
Chronic conditions affecting care:
Meningioma, COPD
*Pulse Oximetry
SaO2: 98
Oxygen Mode of Delivery: Room air
Patient hypoxic: no (98%)
*EKG
Interpreted by ED Provider?: Yes
Heart Rate: 80
Rate: normal
Rhythm: sinus
[place]: normal axis
Interval: normal interval
QRS Pattern: normal QRS
Ischemia: no ischemia
*Critical Care Note
Total Time (30-74mins, 75-104mins- exclusive of procedures): Not Applicable
Data Reviewed
Review of Other/Old Records Reveals: Labs, Records and Discharge Summary
Source: patient, records, family and ambulance crew
Patient Management
Discussion with other providers: Hospitalist (Discussed with hospitalist), Strap Cutting Machine Operator (Discussed with toxicology through [facility]) and Other (Discussed with crisis team)
Escalation/DeEscalation of care consider admission/obs:
Admission indicated
ED Attending Note
-
Portions of this chart may have been created with voice recognition software.� Occasional wrong word or��sound alike� substitutions may have occurred due to the inherent limitations of voice recognition software.
Discharge Plan
Departure
Patient Disposition: Admit
Date of Disposition: 04/11/25
Time of Disposition: 00:26
Admit to doctor: Carlton
Presentation/result/management discussed w/ accepting MD/DO: Hospitalist
Patient Status:: 302
Discharge Problem:
Acetaminophen overdose, Suicide attempt
Interventions
Interventions:
*Risk Screen - Suicide Last Done: 04/10/25 23:02
*Neglect/Abuse Screening Last Done: 04/10/25 23:02
ED- Neurological Assessment Last Done: 04/11/25 00:11
[2025-04-10 23:18] VITALS: BMI 29.7
[2025-04-10 23:25] LABS: Hematocrit 35.7 % (37.0-47.0); Hemoglobin 12.2 g/dL (12.0-16.0); Mean Corp Hgb Conc. 34.2 g/dL (33.0-37.0); Mean Corpuscular Volume 95.2 fL (81.0-99.0); Nucleated Red Blood Cells % 0 %; Platelet Count 433 10^3/uL (130-400); Red Cell Dist. Width 12.4 % (11.5-14.5)
[2025-04-10 23:30] VITALS: BP 80/53
[2025-04-10 23:32] VITALS: BP 78/54
[2025-04-10 23:34] VITALS: BP 91/64
[2025-04-10] MEDS: NSS 1000 IV (23:41)
[2025-04-10 23:45] LABS: ALT (SGPT) 38 U/L (0-35); AST (SGOT) 27 U/L (14-36); Albumin 3.2 g/dl (3.5-5.0); Alkaline Phosphatase 61 U/L (38-126); Blood Urea Nitrogen 51 mg/dl (7-17); Calcium 8.9 mg/dl (8.4-10.2); Carbon Dioxide 32 mmol/L (22-30); Chloride 97 mmol/L (98-107); Estimated Creatinine Clearance 56 ml/min; Glucose 171 mg/dl (70-99); Potassium 3.7 mmol/L (3.5-5.1); Salicylate < 1.0 mg/dl (2.0-20.0); Sodium 131 mmol/L (135-145); Total Protein 6.0 g/dl (6.3-8.2); eGFR > 60.00
[2025-04-10 23:57] LABS: Acetaminophen 252 ug/ml (10-30)
[2025-04-10] MEDS: ACETADOTE 251.75 MG IV (23:58)
[2025-04-11] VITALS (44 sets, daily range): BP systolic 87–145; BP diastolic 55–109; BMI 29.1
[2025-04-11] MEDS: DUONEB 3 ML INH ×2 (01:04→07:15)
[2025-04-11] MEDS: ACETADOTE 517.25 MG IV (01:11)
--- NOTE | 2025-04-11 01:32 | HPS.HSE ---
Family Physician
-
Family Physician: Gris Guidry MD
Chief Complaint
-
Intentional Overdose
History of Present Illness
Patient is a 79y F with PMH significant for meningioma on hospice at home who presents to ED after intentional overdose of acetaminophen this evening. History obtained from patient, family and ED staff. Patient took what remained in a bottle of
Tylenol Arthritis this evening at approximately 9:30PM. She estimates it was about 30 tabs of 650mg acetaminophen. Patient was brought immediately to the ED for evaluation. She has no specific complaints at present. She denies any abdominal pain
or nausea. No prior h/o suicide attempts.
Patient is on hospice care for her meningioma and is heather that she wishes to as comfortably - and as soon - as possible.
She seems upset to be on some of her current medications.
Medical History
Past Medical History
Past Medical History: Reports Other
Additional Past Medical History:
Grade III Meningioma on Hospice
COPD
Hypertension
Hypothyroidism
Past Surgical History: Reports Other
Additional Past Surgical History:
Craniotomy
Right ALMA
Right Lumpectomy
Social History
Tobacco: Smoker (Current every day smoker.)
Alcohol: Occasional
Drug: None
Family History
Family History: Not pertinent
Allergies / Home Medications
Allergies reflects when Allergies were last updated in [facility].
Home Medications with original date entered in [facility]
Allergy/Medication List:
Allergies
Allergy/AdvReac Type Severity Reaction Status Date / Time
No Known Allergies Allergy Unverified 08/17/18 06:30
Home Medications
fluticasone furoate 200 mcg-vilanterol 25 mcg/dose inhalation powder (Breo Ellipta) 1 inh inhalation R HS Lung/Breathing Issues 08/17/18
ipratropium 0.5 mg-albuterol 3 mg (2.5 mg base)/3 mL nebulization soln 3 ml inhalation R QID Lung/Breathing Issues 08/17/18
levothyroxine 100 mcg tablet (Synthroid) 100 mcg PO HS Thyroid 08/17/18
amlodipine 5 mg tablet (Norvasc) 5 mg PO HS Blood Pressure 03/13/25
azithromycin 250 mg tablet 250 mg PO QPM 03/13/25
budesonide 0.5 mg/2 mL suspension for nebulization 0.5 mg inhalation R BID Lung/Breathing Issues 03/13/25
cholecalciferol (vitamin D3) 25 mcg (1,000 unit) tablet (Vitamin D3) 25 mcg PO QPM Supplement 03/13/25
dexamethasone 2 mg tablet 2 mg PO BID Anti-Inflammatory 03/13/25
hydrochlorothiazide 12.5 mg tablet 12.5 mg PO HS Blood Pressure 03/13/25
levetiracetam 750 mg tablet (Keppra) 750 mg PO BID Seizures 03/13/25
Lasix 04/11/25
lorazepam 0.5 mg tablet (Ativan) 0.5 mg PO Q4 PRN anxiety 04/11/25
sennosides 8.6 mg capsule (senna) 8.6 mg PO BID 04/11/25
Review of Systems
-
History Source: Patient and Family
A 12 point ROS was completed and negative except as noted: Yes
Constitutional: Reports Fatigue; Denies Fever or Chills
Respiratory: Reports Cough (chronic / unchanged); Denies Trouble Breathing
Cardiac: Denies Chest Pain or Palpitations
Abdomen/GI: Denies Abdominal Pain, Nausea, Vomiting or Diarrhea
: Denies Dysuria or Frequency
Neurological: Denies Dizzy or Headache
Psych: Reports Depression and Suicidal; Denies Anxiety
Physical Exam
Vital Signs
Vital Signs
Temp Pulse Resp BP Pulse Ox
98.4 F 75 13 87/58 94
04/10/25 23:08 04/11/25 00:00 04/11/25 00:00 04/11/25 00:00 04/11/25 00:00
Physical Exam
General: Other (79y F in no acute distress.)
HEENT: Moist mucous membranes and PERRLA
Respiratory: Other (Scattered coarse breath sounds. Faint expiratory wheezing throughout.)
Cardiac: S1/S2 and Regular Rhythm; No Murmur
GI: Soft, Non Tender, Non Distended and Normal Bowel Sounds
Musculoskeletal: No Clubbing, No Cyanosis and Other (2-3+ pitting edema b/l LEs with weeping.)
Neuro: AO x 3
Laboratory Results
-
04/10/25 23:19
04/10/25 23:19
Laboratory Results
Total Bilirubin 0.7 mg/dl (0.2-1.3) 04/10/25 23:19
AST 27 U/L (14-36) 04/10/25 23:19
ALT 38 U/L (0-35) H 04/10/25 23:19
Alkaline Phosphatase 61 U/L (38-126) 04/10/25 23:19
Impression/Plan
-
A/P: Patient is a 79y F with PMH significant fro meningioma on home hospice who presents to ED for evaluation after intentional Tylenol overdose this evening.
Intentional Tylenol Overdose
- Admit to ICU for further evaluation and treatment.
- Initial Tylenol level obtained about 2 hours post-ingestion - unclear relevance.
- Acetylcholinesterase regimen initiated and will continue / complete.
- Follow-up 4 hour Tylenol level to gauge therapy.
- +/- one time dose of fomepizole as well depending on that level.
- Follow for any new symptoms of abd pain, N/V, etc.
- Follow LFTs for changes (currently actually improved from most recent baseline).
- Finisher Denture evaluation for additional recommendations.
- Psych / Crisis evaluation.
Grade III Meningioma
- On Hospice.
- Reviewed with family and patient at the time of admission.
- Plan to resume hospice care following acute event / treatment.
Benign Hypertension
COPD without Acute Exacerbation
Lower Extremity Edema
Hypothyroidism
- Limit medications to essential meds / comfort meds only.
- Nebs PRN.
DVT Prophylaxis: SCDs
Code Status: Reviewed with family / POA in detail. Patient unable to determine given suicide attempt / ideation. Family / POA agrees that patient will remain DNR given her underlying diagnosis / Hospice status.
[2025-04-11 02:06] LABS: Acetaminophen 188 ug/ml (10-30)
[2025-04-11] MEDS: FOMEPIZOLE 101.035 MG IV (02:55)
[2025-04-11 03:02] LABS: Glucose - Point of Care 262 mg/dl (70-99)
[2025-04-11] MEDS: NOVOLOG FLEXPEN 3 UNITS SC (03:33)
--- NOTE | 2025-04-11 03:45 | PTCARENOTE ---
Pt arrived with the ED RN, she is drowsy, orientation questions were all wrong. After moving her safely from the stretcher to the ICU bed, she woke up and was able to answer all questions appropriately. Sinus with 1st degree on monitor, weak pedals
with +2 weeping edema on B/L LE. She required 4L NC for sats > 90%. Acetylcysteine infusing upon her arrival, and Fomepizole started shortly after her arrival. BG 262, 3units insulin given. Pt has 4 scattered wounds on her left calf/faustin, all are
open, with purulent drainage.
1- 2x1
2-1x0.6
3- 1x1
4-1x1
[2025-04-11] MEDS: ACETADOTE 1034.5 MG IV (05:09)
[2025-04-11 05:42] LABS: Hematocrit 33.1 % (37.0-47.0); Hemoglobin 11.4 g/dL (12.0-16.0); Mean Corp Hgb Conc. 34.4 g/dL (33.0-37.0); Mean Corpuscular Volume 95.7 fL (81.0-99.0); Platelet Count 376 10^3/uL (130-400); Red Cell Dist. Width 12.3 % (11.5-14.5)
[2025-04-11 05:45] LABS: APTT 24.8 Sec (23.4-35.0); INR 1.06; PT 14.1 Sec (11.4-14.6)
[2025-04-11 05:54] LABS: ALT (SGPT) 34 U/L (0-35); AST (SGOT) 19 U/L (14-36); Acetaminophen 116 ug/ml (10-30); Albumin 2.7 g/dl (3.5-5.0); Alkaline Phosphatase 22 U/L (38-126); Blood Urea Nitrogen 41 mg/dl (7-17); Calcium 7.8 mg/dl (8.4-10.2); Carbon Dioxide 28 mmol/L (22-30); Chloride 101 mmol/L (98-107); Estimated Creatinine Clearance 66 ml/min; Glucose 166 mg/dl (70-99); Magnesium 2.4 mg/dl (1.6-2.3); Potassium 2.9 mmol/L (3.5-5.1); Sodium 135 mmol/L (135-145); Total Protein 5.3 g/dl (6.3-8.2); eGFR > 60.00
[2025-04-11 06:10] LABS: Glucose - Point of Care 128 mg/dl (70-99)
[2025-04-11] MEDS: KCL 270 MEQ IV (06:19)
[2025-04-11] MEDS: PULMICORT 0.5 MG INH (07:15)
--- NOTE | 2025-04-11 08:16 | CON.INTV ---
Consultation
Consultation Request
Date/Time Consultation Requested: 04/11/2025237
Date/Time Consultation Performed: 04/11/2025300
Requesting Provider: Dr. Vincent
Performing Provider: Dr. Cox
Reason for Consultation: Suicide attempt/tylenol overdose
Medical History
-
Chief Complaint: Suicide attempt
History of Present Illness:
79-year-old female with a past medical history of COPD, hypertension, hypothyroidism and stage III meningioma who presented with suicide attempt by overdosing on Tylenol and then telling the home health aide to call 911. Patient is immobile due to
significant ambulatory dysfunction. HPI obtained from the daughters, Deisi and Veronika, as the patient is not cooperative. Patient has medications where she sits in case she needs something given her ambulatory dysfunction, and this includes
Tylenol. The daughters believe that she is having such difficulty walking due to the meningioma. Patient had been on hospice care for meningioma but per the patient, she says that she is still getting other medications besides meds that would end
her life. She currently does not want to take any medications at all and says that she wants a '45.' Labs showed leukocytosis to 18.5, platelet count 433, sodium 131, ALT 38, initial acetaminophen level of 252 mcg/mL. CXR showed low lung volumes
with no acute cardiopulmonary process. In the ER she was given 1 L NS 0.9%, DuoNebs and started on NAC. She was admitted to the ICU for further care, and pumping station engineer service consulted for additional management/recommendations.
PMHx: Stage III meningioma, COPD, hypertension, hypothyroidism, active smoker, latent TB
PSHx: Craniotomy, right ALMA, right lumpectomy
Past Medical History
Past Medical History: Other (Above as per HPI)
Past Surgical History: Other (Above as per HPI)
Social History
Tobacco: Smoker (Smokes 1 PPD (cigarettes purchased by daughter as patient has intense shaming of her family if she does not get what she wants))
Alcohol: Occasional
Drug: None
Living: With Family
Family History
Family History: CAD (Mother), Diabetes (Mother), Hypertension (Father, mother, paternal uncle, maternal uncle and paternal grandfather) and Other (Father: History of CVA; mother: History of CHF)
Allergies / Home Medications
Allergies
Allergy/AdvReac Type Severity Reaction Status Date / Time
No Known Allergies Allergy Unverified 08/17/18 06:30
Home Medications
�Medication �Instructions �Recorded �Confirmed �Last Taken �Type
fluticasone furoate 200 1 inh inhalation R HS 08/17/18 04/11/25 03/12/25 History
mcg-vilanterol 25 mcg/dose Lung/Breathing Issues
inhalation powder (Breo Ellipta)
ipratropium 0.5 mg-albuterol 3 mg 3 ml inhalation R QID 08/17/18 04/11/25 03/13/25 History
(2.5 mg base)/3 mL nebulization Lung/Breathing Issues
soln
levothyroxine 100 mcg tablet 100 mcg PO HS Thyroid 08/17/18 04/11/25 04/10/25 History
(Synthroid)
amlodipine 5 mg tablet (Norvasc) 5 mg PO HS Blood Pressure 03/13/25 04/11/25 04/10/25 History
azithromycin 250 mg tablet 250 mg PO QPM Infection 03/13/25 04/11/25 04/10/25 History
budesonide 0.5 mg/2 mL suspension 0.5 mg inhalation R BID 03/13/25 04/11/25 03/13/25 History
for nebulization Lung/Breathing Issues
cholecalciferol (vitamin D3) 25 25 mcg PO QPM Supplement 03/13/25 04/11/25 03/12/25 History
mcg (1,000 unit) tablet (Vitamin
D3)
dexamethasone 2 mg tablet 2 mg PO BID Anti-Inflammatory 03/13/25 04/11/25 04/10/25 History
hydrochlorothiazide 12.5 mg tablet 12.5 mg PO HS Blood Pressure 03/13/25 04/11/25 04/10/25 History
levetiracetam 750 mg tablet 750 mg PO BID Seizures 03/13/25 04/11/25 04/10/25 History
(Keppra)
Lasix 04/11/25 Unknown History
lorazepam 0.5 mg tablet (Ativan) 0.5 mg PO Q4 PRN anxiety 04/11/25 04/11/25 Unknown History
sennosides 8.6 mg capsule (senna) 8.6 mg PO BID Constipation 04/11/25 04/11/25 Unknown History
Review of Systems
-
Unable to Obtain full review of systems at this time due to: Other (Patient not being cooperative)
Vitals / Labs / Diagnostic Testing
Vital Signs
Temp Pulse Resp BP Pulse Ox
97.4 F 76 17 121/68 96
04/11/25 19:18 04/11/25 13:30 04/11/25 13:30 04/11/25 13:00 04/11/25 23:04
Lab Data
04/11/25 05:19
04/11/25 13:34
Laboratory Results
04/11/25
05:19
PT 14.1
INR 1.06
APTT 24.8
Diagnostic Testing:
Physical Exam
-
HEENT: Normocephalic
Cardiovascular: S1/S2
Respiratory: Non-Labored Respirations and Accessory Resp Muscle Use (negative)
GI: Non Distended
Neurology: Awake, Alert, Tremors (negative) and Other (Agitated at times, telling me to 'get out' which she also told the same thing to her daughter (present at bedside))
Skin: Good Color
General: Respiratory Distress (negative), Chills (negative) and Sweats (negative)
Assessment
-
Assessment: 79-year-old female with a past medical history of COPD, hypertension, hypothyroidism and stage III meningioma who presented with suicide attempt by overdosing on Tylenol and then telling the home health aide to call 911. Patient is
immobile due to significant ambulatory dysfunction. HPI obtained from the daughters, Deisi and Veronika, as the patient is not cooperative. Patient has medications where she sits in case she needs something given her ambulatory dysfunction, and
this includes Tylenol. The daughters believe that she is having such difficulty walking due to the meningioma. Patient had been on hospice care for meningioma but per the patient, she says that she is still getting other medications besides meds
that would end her life. She currently does not want to take any medications at all and says that she wants a '45.' Labs showed leukocytosis to 18.5, platelet count 433, sodium 131, ALT 38, initial acetaminophen level of 252 mcg/mL. CXR showed
low lung volumes with no acute cardiopulmonary process. In the ER she was given 1 L NS 0.9%, DuoNebs and started on NAC. She was admitted to the ICU for further care, and pumping station engineer service consulted for additional management/recommendations.
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
Impression:
#Intentional Tylenol overdose
#Suicide attempt
#History of stage III meningioma with last immunotherapy treatment approximately 1 month ago with Avastin
#Enrolled in hospice prior to arrival
#COPD
#Active tobacco smoker
#History of latent TB
#History of angioedema secondary to lisinopril
#Osteoporosis
Plan:
- 302 was filed via ER physician � Defer to psychiatry when this can be lifted
- Continue 1:1
- Her home medications including her inhalers and nebulizers should be resumed, however that she is refusing what seems like almost all of her medications and seems to be picking and choosing which one she wants to take
- I will order Seroquel to be given to her twice a day, and if she refuses then I have ordered Zyprexa to be given
- Continue restraints if needed for protective intervention (i.e. removing IV lines, leads)
- Continue with NAC protocol until Tylenol level is less than 10 mcg/mL
- Continue to trend LFTs
- Recommend that hospice be consulted to speak to the family/patient and see what options there are considering this suicide event; the patient told me today that she is going to continue trying to kill herself as each day comes
- Given the patient's clinical, it is unclear if the patient will naturally pass away within 6 months while she is continue to take her medications like she had been doing. If she truly wants to pass away, then she should do full comfort care
measures which can be continued as an outpatient, meeting no medications unless tailored for comfort, and that also means no steroids, no seizure medications, and no immunotherapy for her known meningioma.
- The patient would like to , and she does not want to wait weeks/months/years - - > I did discuss with the family to look into physician assisted suicide as this is an option however do not believe that this is legal in the [facility]
- There is currently legislation ongoing in our [facility] via ' with dignity,' and a bill was referred to the [place] Judiciary Committee. The family can always reach out to this organization which I think would be a powerful
contribution as the ultimate goal is to assist with having Jazmyn with dignity as opposed to live with this daily suffering
- Maintain SpO2 88-95% using supplemental oxygen as needed (currently on room air and breathing comfortably
- prn nebulized bronchodilators - not currently bronchospastic
- Incentive spirometer encouraged 10x per hour for at least 4 hrs a day
- Would offer nicotine patch
- Maintain MAP>65
- Replete electrolytes with K>4, Mg>2
- Maintain euglycemia with goal BG 140-180
- Trend H/H and transfuse if needed to keep Hb>7g/dL; keep plt>20k, unless there is concern for bleeding then keep plt>50k
- DVT ppx: Change to LMWH
Code status: DNR/DNI
Patient is stable for downgrade out of ICU to telemetry. No additional recommendations at this time. Parks And Recreation Manager/Pulmonary service will now sign off. Thank you for allowing us to be involved in the care of this patient. Please reconsult if there
are any additional questions/concerns, or if patient's respiratory status deteriorates.
Total time spent today was 77 minutes for this encounter. Time includes reviewing laboratory test/imaging results, reviewing pertinent medical records, obtaining and reviewing medical history, performing an appropriate exam, ordering medications,
tests and procedures. Time also includes documentation of this encounter, coordinating patient care and communicating with other healthcare professionals. Total time does not include separately billed tests performed on this date of service.
--- NOTE | 2025-04-11 09:23 | PTCARENOTE ---
Received pt in bed, dozing intermittently. AOx3, drowsy. Siva soft wrist restraints removed. NSR w/ 1st degree AVB on monitor. Pt denies pain. Pt becoming tearful during assessment stating 'the brain tumor is going to kill him so what's the point of
all this'. Pt refused all meds. Tolerating clear liquid diet. 1:1 remains at bedside for pt safety. Psych consult in. Emotional support given. VSS. Acetylcysteine gtt continues. Will continue to monitor closely.
--- NOTE | 2025-04-11 09:49 | WOUNDNOTE ---
L LATERAL DISTAL LEG
--- NOTE | 2025-04-11 09:50 | WOUNDNOTE ---
L ANTERIOR LATERAL LOWER LEG
--- NOTE | 2025-04-11 09:50 | WOUNDNOTE ---
R MEDIAL LOWER LEG
--- NOTE | 2025-04-11 09:55 | WOUNDNOTE ---
[facility] RN note: Patient admitted with overdose.
See H&P for complete history.
PMH: Grade III Meningioma on Hospice
COPD
Hypertension
Hypothyroidism
Wound Location and type/assessment: Patient admitted with: weeping legs from Anasarca, end stage cancer. Patient is on hospice at home. Leg drainage serous, L greater than R leg. Heels boggy but blanchable. Turned patient with assist of PCT, sacrum
is intact. Using Purwick but large amt of urine on Pad, nurse made aware.
Appetite: Fair.
Pressure redistribution devices in place: Accumax, air cushion on pillow placed under calves.
Plan: Absorbant dressing applied to both legs, leg elevation.
Will confirm orders with hospitalist and updated nurse.
Updated care plan and will follow as needed.
Note to case management of equipment requested for discharge:None.
--- NOTE | 2025-04-11 10:21 | HOSPNOTE ---
Spoke to daughter at length. Patient is revoking hospice services as she has been admitted and seeking treatment. Daughter has a call into [facility] for to discuss weaning patient off some of her medications. Reviewed we will follow
and be available to readmit patient onto hospice services if they choose. Daughter in agreement. CM, Attending and Primary Nurse updated.
[2025-04-11 11:25] LABS: Acetaminophen 69 ug/ml (10-30)
[2025-04-11] MEDS: DUONEB INH ×3 (11:39→21:24)
--- NOTE | 2025-04-11 13:11 | CM ---
,Here on 302, suicide attempt. Currently on 1:1. Previous admission 03/13/25 to 03/15/25 for COPD exacerbation. Initial assessment completed with patient who lives alone with 24/7 private caretakers. Patient lives in a 1 story home with basement, 2
steps to enter. PANEL MAKER patient received assistance with ADL's and uses a RW for ambulation. She does not drive. She has a RW, commode, SC, w/ch and grab bars in the bathroom. She was on hospice service with hospice. Daughter has revoked the hospice
services on this admission. Does have HC-POA. No VA benefits. No psychiatric hospitalizations. PCP is Dr. Gris Guidry. Pharmacy is [facility] in [place]. Discharge POC: TBD. Psych involved.
--- NOTE | 2025-04-11 14:24 | CS.PSYCHR ---
Consult Summary - Psychiatry
-
pt seen in consultation following overdose of tylenol in suicide attempt
79 yo woman with recurrent stage 3 meningioma, COPD and hypothyroidism recently at [facility] for COPD exacerbation, now on home hospice due to frustration with poor quality of life due to illness. Yesterday took an overdose of tylenol, then told
home health aide to call 911.
Has been loudly proclaiming to anyone within earshot that she refuses to live this way. Asks me to take out a 45 and shoot her.
No prior psychiatric history, though has lifelong 'strong personality' with insistence on living life on own terms (per daughter, interviewed separately.) Had one large surgery for debulking of large meningioma, followed by some radiation treatment.
Declined to proceed with immunotherapy options offered, now wants to quickly. Took od because it was taking too long.
On exam patient is directing nursing staff in how she wants to be positioned, very angry that they are not listening to her appropriately. Only willing to speak with me briefly, insists that there is nothing I can do if I am not willing to help kill
her. We discussed how this is something that is offered in other places (euthanasia now legal in several countries as well as [place]) but not here in [place]. 'I guess those are some of my options then.' Announces she is tired, would not answer
any more questions, and lies on her side with eyes closed.
Pt has three children, all close, all aware of the control issues which are making her current limited life intolerable to her. 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
she does not have the same option he had of simply stopping dialysis.
Had told daughter yesterday that she did not want to take any more medication--daughter asking her to take the morphine and ativan which hospice service has provided for comfort. Daughter was on her way over to mother's home (lives alone with aides
12/01) to discuss when she got word of overdose.
Impression: Adjustment disorder with mixed mood/conduct symptoms. Existential crisis
Rec: Daughter and children will discuss with pt what she is and is not willing to do at this phase of her life. Not in any condition to be accepted by any psychiatric unit I know of (loss of ambulatory function and O2 requirements rule her out) so
will need to try to manage in current setting with closer observation, or in SNF. If pt agrees would use alprazolam for anxiety, agree to continue with morphine for air hunger. Daughter plans call to team at [facility] to discuss what she can expect at
this stage of illness. If pt willing would consider lexapro 5 mg
[2025-04-11 14:36] LABS: Blood Urea Nitrogen 30 mg/dl (7-17); Calcium 8.0 mg/dl (8.4-10.2); Carbon Dioxide 29 mmol/L (22-30); Chloride 103 mmol/L (98-107); Estimated Creatinine Clearance 65 ml/min; Glucose 143 mg/dl (70-99); Potassium 2.9 mmol/L (3.5-5.1); Sodium 135 mmol/L (135-145); eGFR > 60.00
--- NOTE | 2025-04-11 15:38 | W.PN.UPDATE ---
Update Note
Progress Note Update
Seen and examined
Continue NAC drip until acetaminophen less than 10
Family at bedside.
1:1 safety tray
[2025-04-11 15:52] LABS: Acetaminophen 31 ug/ml (10-30)
[2025-04-11] MEDS: SEROQUEL 25 MG PO ×2 (16:41→19:50)
[2025-04-11] MEDS: ROXANOL ORAL CONCENTRATE 10 MG PO ×2 (17:23→20:58)
[2025-04-11 17:37] LABS: Acetaminophen 13 ug/ml (10-30)
--- NOTE | 2025-04-11 20:01 | PTCARENOTE ---
Patient remains 1:1, son at bedside as well. Patient aao x3, affect flat and negative verbalizations continue. Patient refusing Keppra and Dexamethasone this evening and states, 'I refused earlier today, that should be your first clue! Put a note
that I do not want those medicines.' RN provided education on both medications and that they are not life prolonging, but providing comfort for her time while she is here. Patient continues to refuse. Patient NSR, weak PP b/l, +2 edema noted to bl
le. Lung sounds coarse throughout all lobes, 91% on ra. Abd round, firm, and distended.
Patient continues on Acetadote gtt, will recheck levels around 2100.
Call patel within reach, will continue to monitor patient closely.
[2025-04-11] MEDS: ACETADOTE 1025.5 MG IV (20:31)
[2025-04-11 21:20] LABS: Glucose - Point of Care 140 mg/dl (70-99)
[2025-04-11] MEDS: SYMBICORT 160/4.5 MCG INHALER INH (21:25)
[2025-04-11 21:40] LABS: Acetaminophen < 10 ug/ml (10-30)
--- NOTE | 2025-04-11 22:10 | W.PN.UPDATE ---
Update Note
Progress Note Update
acetaminophen level now <10. will dc NAC gtt
--- NOTE | 2025-04-11 22:39 | PTCARENOTE ---
Acetaminophen level <10. Reviewed with VINNIE Canales, confirmed discontinuation of Acetadote gtt. RN updated patient. Patient saturated covidien with urine. Patient agreeable to care at this time. CHG wipes utilized for bathing, linens changed,
patient repositioned for comfort. Patient verbalizes appreciation for care. RN instructed patient to notify staff anytime she is uncomfortable or is incontinent. Patient verbalizes understanding. Will continue to monitor patient closely.
[2025-04-12] VITALS (7 sets, daily range): BP systolic 96–119; BP diastolic 56–71; BMI 29.1
[2025-04-12] MEDS: MORPHINE SULFATE 1 MG IV (00:38)
--- NOTE | 2025-04-12 00:43 | PTCARENOTE ---
Patient c/o increased pain to b/l LE, -01/29. Last dose of PRN Roxanol provided around 2100. Discussed with Ally [place], 1x order noted for Morphine 1mg IV now, mod to severe pain added to reason for Roxanol 10mg prn dose as well. Medication
administered as ordered. Will continue to monitor patient closely.
--- NOTE | 2025-04-12 02:29 | DOWNTIME ---
There was a TV Tube[employer] Client Stamping Machine Operator Downtime on 04/12/2025 from 0100 to 04/12/2025 at 0215. Downtime documentation of patient's care, including medication administrations, has been reconciled in the electronic record per guidelines. Refer to the
patient's paper chart under the miscellaneous tab to see printed paper medication records and downtime forms.
[2025-04-12] MEDS: ROXANOL ORAL CONCENTRATE 10 MG PO ×3 (04:23→16:48)
[2025-04-12 05:01] LABS: Hematocrit 34.5 % (37.0-47.0); Hemoglobin 11.6 g/dL (12.0-16.0); Mean Corp Hgb Conc. 33.6 g/dL (33.0-37.0); Mean Corpuscular Volume 99.1 fL (81.0-99.0); Nucleated Red Blood Cells % 0 %; Platelet Count 356 10^3/uL (130-400); Red Cell Dist. Width 12.6 % (11.5-14.5)
[2025-04-12 05:59] LABS: ALT (SGPT) 32 U/L (0-35); AST (SGOT) 21 U/L (14-36); Acetaminophen < 10 ug/ml (10-30); Albumin 2.5 g/dl (3.5-5.0); Alkaline Phosphatase 63 U/L (38-126); Blood Urea Nitrogen 20 mg/dl (7-17); Calcium 8.3 mg/dl (8.4-10.2); Carbon Dioxide 31 mmol/L (22-30); Chloride 107 mmol/L (98-107); Estimated Creatinine Clearance 65 ml/min; GGTP 26 U/L (12-43); Glucose 84 mg/dl (70-99); Magnesium 2.4 mg/dl (1.6-2.3); Potassium 2.7 mmol/L (3.5-5.1); Sodium 137 mmol/L (135-145); Total Protein 4.9 g/dl (6.3-8.2); eGFR > 60.00
[2025-04-12] MEDS: KCL 270 MEQ IV (06:13)
[2025-04-12] MEDS: SYMBICORT 160/4.5 MCG INHALER 2 PUFF INH ×2 (07:35→20:18)
[2025-04-12] MEDS: DUONEB 3 ML INH ×2 (07:35→11:20)
[2025-04-12 07:42] LABS: Glucose - Point of Care 82 mg/dl (70-99)
--- NOTE | 2025-04-12 09:00 | PTCARENOTE ---
Rec'd pt at 0800 awake resting in bed. Alert and oriented but affect is very flat. Pt will answer questions asked of her but is easily irritable and frustrated stating she doesn't want most of her meds or treatments anymore that will prolong her
life. Denies pain currently. States she has limited sensation in her legs and only limited movement. Wanted to get up to use the commode but readily said that she cannot stand and that it would take 2 people and that she cannot help. DEAN but legs
are weak with limited movement. Able to move her arms. Speech is clear. Skin is plae and warm. Bilateral lower legs with dressings with Kerlex in place. Respirs- rec'd pt on 2L nc with sats of 94%. Does get GONZALEZ. BS are coarse with exp wheezing.
Coughing a moist non-prod cough. Monitor SR. VS as documented. +2 LE edema. Abd is round and firm with + BS. Ate breakfast. Does c/o some indigestion which she said only Pepcid works for-will inform Dr. Brown. Placed on bedpan for a saturated amt of
yellow urine. IV KCL rider infusing via R Forearm IV site. Capped int intact L hand . Pt repositioned. One to One observation in place. Plan of care reviewed and call patel in reach. Emotional support given.
[2025-04-12] MEDS: SEROQUEL 25 MG PO ×2 (09:05→20:04)
[2025-04-12] MEDS: KCL 20 MEQ PO (11:05)
[2025-04-12] MEDS: PEPCID 20 MG PO (11:05)
--- NOTE | 2025-04-12 11:40 | PTCARENOTE ---
Dr. Brown in to see pt and updated. Daughter at the bedside. Pt oriented and very clear expressing that she does not want further treatment other than medications to keep her comfortable. Medicated at 1105 with Roxanol 10 mg po for c/o 8/10 L lower
leg pain. KCL 40 meq rider completed and additional 40 meq po ordered. Took 20 meq of the 40 meq but had trouble swallowing the pills and unable to take the remaining dose. Sat her on the side of the bed at her request but she was unable to hold
herself up without support. Dr. Brown aware. Dressing changes completed to R and L lower legs. Wounds as documented. Serous drainage. Aliginate applied to draining areas on wounds. Lower legs bilaterally with reddness and edema. Redressed with
alignate/abd's and Kerlex. Elevated on pillows. CHG bath given. Repositioned. Pt states she just wants to rest. Call patel in reach.
--- NOTE | 2025-04-12 11:50 | PTCARENOTE ---
Case management consult ordered for Hospice.
--- NOTE | 2025-04-12 12:30 | PTCARENOTE ---
Pt dozing post Roxanol. 1:[address] No other changes
--- NOTE | 2025-04-12 12:36 | HOSPNOTE ---
Referral received for hospice. The daughter was given a list of SNF with hospice services. The patient was with us on home hospice, we will continue to follow and once patient is accepted to a SNF we will be able to admit onto hospice services.
--- NOTE | 2025-04-12 12:44 | CM ---
Addendum entered by Surinder Jerez 04/12/25 16:10:
Daughters have chosen SNF's for hospice as follows: [facility]. Referrals to be placed.
Addendum entered by Surinder Jerez 04/12/25 13:01:
Per Dr. Abernathy (Psychiatry): No need for 302 or 303. He will visit patient again soon.
Original Note:
Patient and daughter requesting hospice consult. 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 Revoked on 04/11/25. Family now in agreement to sign on to hospice again. They do not want patient returning home even with previous 12/01 caregivers because they are
fearful she may again OD. They prefer patient discharge to a SNF with initiation of hospice services. Hospice consult placed. [employer] list supplied to daughter. Family will choose 4 preferences and report back to CM.
--- NOTE | 2025-04-12 13:17 | W.PN.HOSP.TC ---
Today's Communication/Plan
-
Assessment / Plan
Assessment / Plan
NAD
Scleral Anicteric
MMM
No JVD
Rhonchorous throughout
RRR, S1/S2
Soft, NT, ND, BS+
Warm, Dry
AAOx3
Intentional Tylenol overdose
302 discontinued by psychiatry
Off MAC drip
No indication per psychiatry for acute inpatient involuntary hold
COPD without acute exacerbation
Continue MDIs
Discontinue steroids
Titrate SpO2 greater than 80 to 92%
Hypokalemia
Refused repletion
Brain meningioma
Declined steroids and Keppra
At this time she wants to go towards hospice with understanding that this will provide comfort at the end of her days. Hospice is not there to hasten or to prolong life. Plan of hospice is to provide quality and comfort.
She verbalized understanding
Reviewed medications which included Ativan analgesics glycopyrrolate for which she was agreeable with
Also wanted breathing treatments
Care management consulted for hospice. They have a family and Ms. Fagan with be agreeable to hospice at a facility at this point
Anticipated Discharge: Within 24 hours
Subjective/Interval History
-
Date of Service: April 12, 2025
Seen and examined. No new complaints. No acute overnight events.
Oldest daughter Mrs. Silver was at bedside
Provided full update
Had a heather discussion with Ms. Fagan.
She thought that hospice was there to help end her life.
I discussed with her it is not a treatment therapy to end her life however it is more about making her life comfortable at the end of her days
She does not want to remain on any medications that can prolong her life
She did not want any further potassium
Did not want any steroids nor Keppra
The only medications she wanted to take was morphine Ativan glycopyrrolate and breathing treatments
Objective Data
-
Labs:
Laboratory Results
04/12/25
04:52
WBC 17.0 H
Hgb 11.6 L
Hct 34.5 L
Plt Count 356
Sodium 137
Potassium 2.7 L*
Chloride 107
Carbon Dioxide 31 H
BUN 20 H
Creatinine 0.5 L
Glucose 84
Calcium 8.3 L
Total Bilirubin 0.7
AST 21
ALT 32
Alkaline Phosphatase 63
Vital Signs:
Vital Signs
Temp Pulse Resp BP Pulse Ox
98 F 89 13 97/56 95
04/12/25 12:12 04/12/25 13:00 04/12/25 13:00 04/12/25 12:00 04/12/25 13:00
I&O
04/11/25 04/12/25 04/13/25
06:59 06:59 06:59
Intake Total 64.6 / 129.2 666.4 / 666.4 600 / 600
Output Total 500 / 500
Balance -435.4 / -370.8 666.4 / 666.4 600 / 600
[2025-04-12 14:03] LABS: Glucose - Point of Care 120 mg/dl (70-99)
[2025-04-12] MEDS: KCL PO (14:05)
--- NOTE | 2025-04-12 14:30 | PTCARENOTE ---
Eating some lunch. Does not want anything currently.
[2025-04-12] MEDS: ATIVAN 0.5 MG PO ×2 (15:00→18:44)
--- NOTE | 2025-04-12 15:00 | PTCARENOTE ---
Ativan 0.5 mg po given for some irritableness which per her daughter can be anxiety for her.
--- NOTE | 2025-04-12 16:50 | PTCARENOTE ---
Rested after Ativan but is awake now and c/o 8/10 Upper L leg pain and is restless. Roxanol 10 mg po given. Turned and repositioned. Family at the beside and spoke with case management. No other changes. Remains on 2l nc
--- NOTE | 2025-04-12 18:14 | PTCARENOTE ---
Pt c/o L leg feeling like it is in a vice and has been more anxious. Earlier Roxanol helped but only very briefly. Will update Dr. Brown
--- NOTE | 2025-04-12 18:50 | PTCARENOTE ---
Ativan 0.5 mg po given to relax pt. No other changes
--- NOTE | 2025-04-12 19:49 | W.PN.UPDATE ---
Update Note
Progress Note Update
pt seen for assessment. not appropriate for 302 as she is not eligible for inpatient psychaitric care due to physical needs; 302 can be allowed to no 303 filed. Pt in slightly better spirits today, does not immediately ask me to leave. Still
wants to , acknowledges feeling more comfortable with current meds 9seroquel 25 bid standing, prn ativan 0.5 mg po given twice today.) Daughter at bedside, family is looking into SNF placement for hospice care. I speak with pt about her devoted
family, she becomes emotional, starts to cry and asks me to leave.
[2025-04-12] MEDS: MORPHINE SULFATE 2 MG IV (20:04)
--- NOTE | 2025-04-12 22:04 | PTCARENOTE ---
Received patient at start of shift, lethargic and restless at the same time. C/o pain 01/29 to b/l le. Updated [facility] [place] and discussed patients comfort level and pain management. New order noted for Morphine 2mg IV q2 hours prn breakthrough
pain. PRN administered per order with positive results. Dtr Kayley at bedside, update provided. Patient remains able to make needs known, affect flat, easily irritable at times as well. NSR on the monitor, +2 edema to b/l le remains. Lung sounds
coarse, inspiratory wheezing noted, moist non-productive cough noted as well. O2 2L n/c in place for sat's mid 90's. Abd remains round, firm, non tender. Continent of urine earlier today, incontinent of urine this evening. Patient Left hand INT
leaking and patient c/o pain to iv site. IV removed at this time. Right a/c IV site patent and flushing without difficulty.
Remains on 1:1 for safety r/to suicidal verbalizations however, more agreeable to care today. Call patel within reach, will continue to monitor patient closely.
[2025-04-13] VITALS (8 sets, daily range): BP systolic 100–122; BP diastolic 40–73; BMI 29.2
--- NOTE | 2025-04-13 04:44 | PTCARENOTE ---
Patient without urine output since start of shift. Bladder scanned for 109ml of urine in bladder. Patient has been asleep most of the shift and has had minimal po intake due to resting. Patient awoke prior to bladder scan, denies pain at this time.
Will continue to monitor patient closely.
[2025-04-13] MEDS: ROXANOL ORAL CONCENTRATE 10 MG PO ×3 (07:22→15:41)
[2025-04-13] MEDS: SEROQUEL 25 MG PO ×2 (07:22→20:31)
--- NOTE | 2025-04-13 07:24 | PTCARENOTE ---
recd tele level of care, 1:1 maintained. Verbalizing about her wishes, 'My only regret is that I'm not ' then 'I don't want to talk about it anymore'. Assessed as noted. Meds per MAR. Call patel in reach. Voided on bedpan. Remains on oxygen
at this time, offered to take it off, pt states 'I don't care.'
--- NOTE | 2025-04-13 07:29 | PTCARENOTE ---
Medicated with Roxanol 10 mg po for c/o 8/10 L lower leg pain pt states is from her neuropathy.
[2025-04-13] MEDS: SYMBICORT 160/4.5 MCG INHALER 2 PUFF INH ×2 (07:36→20:50)
[2025-04-13] MEDS: ATIVAN 0.5 MG PO ×2 (09:10→13:51)
--- NOTE | 2025-04-13 09:11 | PTCARENOTE ---
assisted to [facility] for BM, angry, yelling at staff trying to help, 'I'm trying to help by being '. Back to bed, eyes closed, avoiding interaction. Agreeable to ativan, med as noted.
--- NOTE | 2025-04-13 10:38 | PTCARENOTE ---
refusing oxygen for comfort, drinking hot chocolate, resting now after ativan dose. pulse ox 82-84%, non labored, comfortable. warm blankets requested and received.
[2025-04-13] MEDS: DUONEB 3 ML INH (11:16)
[2025-04-13] MEDS: MORPHINE SULFATE 2 MG IV ×3 (12:23→20:47)
--- NOTE | 2025-04-13 14:46 | PTCARENOTE ---
meds given. VS noted, pulse ox 79-80 on room air, denies resp distress and remains on room air, meds given as noted. ate ice cream and peaches for lunch. Positioned for comfort.
--- NOTE | 2025-04-13 14:56 | CM ---
[facility] is requesting family complete financial application. Daughters have tour at [facility] scheduled for Thursday04/14/25 in AM. They will discuss financials with admissions at that time. Discharge POC: SNF on hospice.
--- NOTE | 2025-04-13 15:53 | W.PN.UPDATE ---
Update Note
Progress Note Update
pt seen briefly, spoke with bar staff, chart reviewed. pt now planned for hospice, family exploring inpatient hospice options. pt calmer with current med regimen (standing seroquel, prn ativan) and decisions made. wants to sleep, waves me away, says
she is ok.
--- NOTE | 2025-04-13 16:29 | W.PN.HOSP.TC ---
Today's Communication/Plan
-
Assessment / Plan
Assessment / Plan
NAD
Scleral Anicteric
MMM
No JVD
Rhonchorous throughout
RRR, S1/S2
Soft, NT, ND, BS+
Warm, Dry
AAOx3
Intentional Tylenol overdose
302 discontinued by psychiatry
Off MAC drip
No indication per psychiatry for acute inpatient involuntary hold
COPD without acute exacerbation
Continue MDIs
Discontinue steroids
Titrate SpO2 greater than 80 to 92%
Hypokalemia
Refused repletion
Brain meningioma
Declined steroids and Keppra
At this time she wants to go towards hospice with understanding that this will provide comfort at the end of her days. Hospice is not there to hasten or to prolong life. Plan of hospice is to provide quality and comfort.
She verbalized understanding
Reviewed medications which included Ativan analgesics glycopyrrolate for which she was agreeable with
Also wanted breathing treatments
Care management consulted for hospice. They have a family and Ms. Fagan with be agreeable to hospice at a facility at this point
Anticipated Discharge: 24 - 48 hours
Subjective/Interval History
-
Date of Service: April 13, 2025
Seen and examined. No new complaints. No acute overnight events.
Objective Data
-
Vital Signs:
Vital Signs
Temp Pulse Resp BP Pulse Ox
98.3 F 96 22 100/40 79
04/13/25 15:40 04/13/25 14:40 04/13/25 14:40 04/13/25 14:40 04/13/25 14:29
I&O
04/12/25 04/13/25 04/14/25
06:59 06:59 06:59
Intake Total 666.4 / 666.4 1000 / 1000
Output Total 150 / 150 350 / 350
Balance 666.4 / 666.4 850 / 850 -350 / -350
[2025-04-13] MEDS: MYCOSTATIN ORAL SUSPENSION 5 ML PO ×2 (17:35→20:31)
--- NOTE | 2025-04-13 17:52 | PTCARENOTE ---
family bedside, updated, pt visiting, intermittently talking/sleeping. working on dinner but reports very little appetite. orders for med/surg noted, off monitors. c/o thrush symptoms and noted had been on nystatin recently, requested order from
and obtained, given.
--- NOTE | 2025-04-13 20:00 | TRANSFER ---
Pt swapnil'd to [facility], bed 422-01. Report called and given to [facility] Gonzalo EVANS. Pt transported via hospital bed w/ personal belongings. 1:1 observation maintained throughout transfer.
[2025-04-14] MEDS: MORPHINE SULFATE 2 MG IV ×5 (02:06→20:54)
[2025-04-14 07:00] VITALS: BP 120/71
[2025-04-14] MEDS: MYCOSTATIN ORAL SUSPENSION 5 ML PO ×4 (07:16→20:57)
[2025-04-14] MEDS: SEROQUEL 25 MG PO ×2 (07:16→20:56)
[2025-04-14] MEDS: SYMBICORT 160/4.5 MCG INHALER 2 PUFF INH ×2 (08:28→20:36)
[2025-04-14] MEDS: ATIVAN 0.5 MG PO (10:55)
--- NOTE | 2025-04-14 11:24 | CM ---
CM reviewed chart, reviewed with Hospitalist.
Patient seen bedside asleep, on 1:1.
Patients daughter bedside, family toured [facility] and provided financial application- per [facility], there is a 12 person wait list for LTC.
Daughter provided additional options for LTC with Hospice- [facility], [facility], [facility], and [facility]. Referrals placed in [facility].
CM will continue to follow for all d/c planning needs.
Plan; additional referrals placed for LTC bed with hospice
--- NOTE | 2025-04-14 13:52 | W.PN.HOSP.TC ---
Today's Communication/Plan
-
Assessment / Plan
Assessment / Plan
NAD
Scleral Anicteric
MMM
No JVD
Rhonchorous throughout
RRR, S1/S2
Soft, NT, ND, BS+
Warm, Dry
AAOx3
Intentional Tylenol overdose
302 discontinued by psychiatry
Off MAC drip
No indication per psychiatry for acute inpatient involuntary hold
COPD without acute exacerbation
Continue MDIs
Discontinue steroids
Titrate SpO2 greater than 80 to 92%
Hypokalemia
Refused repletion
Brain meningioma
Declined steroids and Keppra
At this time she wants to go towards hospice with understanding that this will provide comfort at the end of her days. Hospice is not there to hasten or to prolong life. Plan of hospice is to provide quality and comfort.
She verbalized understanding
Reviewed medications which included Ativan analgesics glycopyrrolate for which she was agreeable with
Also wanted breathing treatments
Care management consulted for hospice. They have a family and Ms. Fagan with be agreeable to hospice at a facility at this point
Anticipated Discharge: 24 - 48 hours ( )
Subjective/Interval History
-
Date of Service: April 14, 2025
Seen and examined. No new complaints. No acute overnight events.
Objective Data
-
Vital Signs:
Vital Signs
Temp Pulse Resp BP Pulse Ox
98 F 84 20 120/71 90
04/14/25 07:00 04/14/25 08:32 04/14/25 08:32 04/14/25 07:00 04/14/25 07:00
I&O
04/13/25 04/14/25 04/15/25
06:59 06:59 06:59
Intake Total 1000 / 1000
Output Total 150 / 150 350 / 350
Balance 850 / 850 -350 / -350
[2025-04-14 15:00] VITALS: BP 118/77
[2025-04-14] MEDS: DUONEB 3 ML INH (16:12)
--- NOTE | 2025-04-14 21:52 | W.PN.UPDATE ---
Update Note
Progress Note Update
pt seen this afternoon, as much as she would permit, as she does not really want to talk with anyone who is not going to help her immediately. aware of plan to go to SNF under hospitce care. daughter at bedside states they have approached case
mgmt for additional names since the one they had desired and accepted her has a 12 person wait list. daughter is somewhat tearful as we discuss effect pt's clamoring to is having on them. I asked pt if I could speak with her daughter alone; pt
did not give permission for this. Will continue to try to support family as well as pt.
[2025-04-14 23:30] VITALS: BP 130/75
[2025-04-15 00:03] LABS: Glucose - Point of Care 213 mg/dl (70-99)
[2025-04-15] MEDS: MORPHINE SULFATE 2 MG IV ×6 (00:13→16:30)
[2025-04-15] MEDS: ATIVAN 0.5 MG PO ×3 (04:40→16:29)
[2025-04-15 07:00] VITALS: BP 113/67
[2025-04-15] MEDS: SEROQUEL 25 MG PO ×2 (07:15→21:11)
[2025-04-15] MEDS: MYCOSTATIN ORAL SUSPENSION 5 ML PO ×4 (07:15→21:11)
[2025-04-15] MEDS: SYMBICORT 160/4.5 MCG INHALER 2 PUFF INH ×2 (07:57→20:36)
[2025-04-15 15:00] VITALS: BP 113/69
--- NOTE | 2025-04-15 15:16 | W.PN.UPDATE ---
Update Note
Progress Note Update
Patient seen by me on 04/15/2025 from 1:05pm-1:15pm
Psychiatry follow up for suicidal ideations. Called by nursing to see if we should continue 1:1 monitoring given expiration of 302 and no plan for inpatient psychiatric commitment. Patient had received Ativan and morphine and was calm and at times
falling asleep during assessment. She denied active suicidal ideations. She was ok with me talking to her son separately. He stated that at baseline patient is 'a little combative' and that he thinks keeping the 1:1 for safety is a good idea at this
time. Will continue with it for now. Plan remains for hospice care.
--- NOTE | 2025-04-15 15:19 | W.PN.HOSP.TC ---
Today's Communication/Plan
-
Assessment / Plan
Assessment / Plan
NAD
Scleral Anicteric
MMM
No JVD
Rhonchorous throughout
RRR, S1/S2
Soft, NT, ND, BS+
Warm, Dry
AAOx3
Intentional Tylenol overdose
302 discontinued by psychiatry
Off MAC drip
No indication per psychiatry for acute inpatient involuntary hold
COPD without acute exacerbation
Continue MDIs
Discontinue steroids
Titrate SpO2 greater than 80 to 92%
Hypokalemia
Refused repletion
Brain meningioma
Declined steroids and Keppra
At this time she wants to go towards hospice with understanding that this will provide comfort at the end of her days. Hospice is not there to hasten or to prolong life. Plan of hospice is to provide quality and comfort.
She verbalized understanding
Reviewed medications which included Ativan analgesics glycopyrrolate for which she was agreeable with
Also wanted breathing treatments
Care management consulted for hospice. They have a family and Ms. Fagan with be agreeable to hospice at a facility at this point
Anticipated Discharge: 24 - 48 hours
Subjective/Interval History
-
Date of Service: April 15, 2025
seen sneha xamined. comfortable
Objective Data
-
Vital Signs:
Vital Signs
Temp Pulse Resp BP Pulse Ox
98.1 F 84 16 113/67 99
04/15/25 07:00 04/15/25 08:02 04/15/25 08:02 04/15/25 07:00 04/15/25 07:00
I&O
04/14/25 04/15/25 04/16/25
06:59 06:59 06:59
Intake Total 1060 / 1060
Output Total 350 / 350 150 / 150
Balance -350 / -350 910 / 910
[2025-04-15] MEDS: DUONEB 3 ML INH ×2 (16:19→21:19)
[2025-04-15 23:42] VITALS: BP 119/79
[2025-04-16] MEDS: MYCOSTATIN ORAL SUSPENSION 5 ML PO ×4 (07:26→22:32)
[2025-04-16] MEDS: ATIVAN 0.5 MG PO ×2 (07:26→15:59)
[2025-04-16] MEDS: SEROQUEL 25 MG PO ×2 (07:26→20:25)
[2025-04-16] MEDS: MORPHINE SULFATE 2 MG IV ×3 (07:27→15:59)
[2025-04-16 08:00] VITALS: BP 116/67
[2025-04-16] MEDS: SYMBICORT 160/4.5 MCG INHALER 2 PUFF INH ×2 (08:15→19:25)
--- NOTE | 2025-04-16 12:03 | W.PN.HOSP.TC ---
Today's Communication/Plan
-
Pending SNF for hospice
Assessment / Plan
Assessment / Plan
NAD
Scleral Anicteric
MMM
No JVD
Rhonchorous throughout
RRR, S1/S2
Soft, NT, ND, BS+
Warm, Dry
AAOx3
Intentional Tylenol overdose
302 discontinued by psychiatry
Off MAC drip
No indication per psychiatry for acute inpatient involuntary hold
COPD without acute exacerbation
Continue MDIs
Discontinue steroids
Titrate SpO2 greater than 80 to 92%
Hypokalemia
Refused repletion
Brain meningioma
Declined steroids and Keppra
At this time she wants to go towards hospice with understanding that this will provide comfort at the end of her days. Hospice is not there to hasten or to prolong life. Plan of hospice is to provide quality and comfort.
She verbalized understanding
Reviewed medications which included Ativan analgesics glycopyrrolate for which she was agreeable with
Also wanted breathing treatments
Care management consulted for hospice. They have a family and Ms. Fagan with be agreeable to hospice at a facility at this point
Anticipated Discharge: 24 - 48 hours
Subjective/Interval History
-
Date of Service: April 16, 2025
Seen and examined. No new complaints. No acute overnight events.
Objective Data
-
Vital Signs:
Vital Signs
Temp Pulse Resp BP Pulse Ox
97.5 F 95 16 116/67 88
04/16/25 08:00 04/16/25 08:33 04/16/25 08:33 04/16/25 08:00 04/16/25 08:33
I&O
04/15/25 04/16/25 04/17/25
06:59 06:59 06:59
Intake Total 1060 / 1060 180 / 180
Output Total 150 / 150
Balance 910 / 910 180 / 180
[2025-04-16 15:00] VITALS: BP 117/70
[2025-04-16 22:50] VITALS: BP 125/72
[2025-04-17] MEDS: ATIVAN 0.5 MG PO ×4 (00:34→23:32)
[2025-04-17] MEDS: MORPHINE SULFATE 2 MG IV ×5 (00:35→19:25)
[2025-04-17] MEDS: SYMBICORT 160/4.5 MCG INHALER 2 PUFF INH ×2 (07:42→19:49)
[2025-04-17] MEDS: DUONEB 3 ML INH ×2 (07:51→11:27)
[2025-04-17 08:17] VITALS: BP 115/71
[2025-04-17] MEDS: MYCOSTATIN ORAL SUSPENSION 5 ML PO ×4 (08:23→21:43)
[2025-04-17] MEDS: SEROQUEL 25 MG PO ×2 (08:23→19:26)
--- NOTE | 2025-04-17 10:54 | CM ---
CM reviewed chart, spoke with daughter, Ryan.
Financial application emailed to daughterRyan ([email or web address])
Ryan will complete financial application and submit to [facility], plan remains LTC with Hospice.
Daughter aware if [facility] unable to accept, will need to send more referrals/expand search- at this time all referrals placed have declined patient.
Reviewed with Hospice, Iliana, reviewed with Hospitalist.
CM will continue to follow for all d/c planning needs.
Plan; financial application submitted to [facility] with [facility]ospice to sign on, pending review
--- NOTE | 2025-04-17 11:12 | W.PN.HOSP.TC ---
Today's Communication/Plan
-
dispo planning for SNF hospice
Assessment / Plan
Assessment / Plan
Intentional Tylenol overdose
-s/p NAC with stable liver enzymes
-302 discontinued by psychiatry
No indication per psychiatry for acute inpatient involuntary hold
COPD without acute exacerbation
-Continue MDIs
-off steroids
Titrate SpO2 greater than 80 to 92%
Hypokalemia
Refused repletion
Brain meningioma
Declined steroids and Keppra
At this time she wants to go towards hospice with understanding that this will provide comfort at the end of her days. Hospice is not there to hasten or to prolong life. Plan of hospice is to provide quality and comfort.
She verbalized understanding
Reviewed medications which included Ativan analgesics glycopyrrolate for which she was agreeable with
Also wanted breathing treatments
Care management consulted for hospice. Awaiting SNF Hospice
Anticipated Discharge: Within 24 hours
Subjective/Interval History
-
Date of Service: April 17, 2025
no new complaints
working on a better position
Objective Data
-
Vital Signs:
Vital Signs
Temp Pulse Resp BP Pulse Ox
98.2 F 98 18 115/71 90
04/17/25 08:17 04/17/25 08:17 04/17/25 08:17 04/17/25 08:17 04/17/25 08:30
I&O
04/16/25 04/17/25 04/18/25
06:59 06:59 06:59
Intake Total 180 / 180 520 / 520
Balance 180 / 180 520 / 520
Review of Systems
-
History Source: Patient
All other systems: Reviewed and negative
Physical Exam
-
General: Well Developed and Well Nourished
Respiratory: Wheezes and Rhonchi
Cardiac: Regular Rhythm and S1/S2
GI: Soft, Nontender and Normal Bowel Sounds
Musculoskeletal: Edema, Right Lower Extrem and Edema, Left Lower Extrem
Skin: Warm
Neuro: Awake and AO x 3
Psych: Calm
Data Reviewed
-
Diagnostic Radiology: Report Reviewed by me
[2025-04-17 16:00] VITALS: BP 139/89
--- NOTE | 2025-04-17 17:30 | W.PN.UPDATE ---
Update Note
Progress Note Update
pt seen for followup assessment. not as irritable as she has been, when asked what I can do for her, said 'nothing thanks' rather than previous statements about asking me to kill her. daughter at bedside, mentions that mother had wondered about her
morphine and ativan; would prefer it standing, discussed with pt, will make this change, she is aware she can decline, and that nurses can decline to give it if she is too sedated
[2025-04-17] MEDS: FLUSH (NSS) 2 FLUSH IV (19:26)
[2025-04-17 23:38] VITALS: BP 131/84
[2025-04-18] MEDS: ATIVAN 0.5 MG PO ×3 (03:39→11:41)
[2025-04-18 07:40] VITALS: BP 155/97
[2025-04-18] MEDS: SYMBICORT 160/4.5 MCG INHALER 2 PUFF INH ×2 (08:09→20:29)
[2025-04-18] MEDS: MYCOSTATIN ORAL SUSPENSION 5 ML PO ×2 (08:10→11:42)
[2025-04-18] MEDS: MORPHINE SULFATE 2 MG IV ×2 (08:10→11:41)
[2025-04-18] MEDS: SEROQUEL 25 MG PO (08:10)
[2025-04-18 08:19] LABS: Glucose - Point of Care 107 mg/dl (70-99)
--- NOTE | 2025-04-18 11:33 | W.PN.HOSP.TC ---
Today's Communication/Plan
-
dispo planning
IV Morphine x 1 now
add Haldol SL PRN
Assessment / Plan
Assessment / Plan
Intentional Tylenol overdose
-s/p NAC with stable liver enzymes
-302 discontinued by psychiatry
No indication per psychiatry for acute inpatient involuntary hold
COPD without acute exacerbation
-Continue MDIs
-off steroids
Titrate SpO2 greater than 80 to 92%
Hypokalemia
Refused repletion, K was 2.7 several days ago
Brain meningioma
Declined steroids and Keppra
At this time she wants to go towards hospice with understanding that this will provide comfort at the end of her days. Hospice is not there to hasten or to prolong life. Plan of hospice is to provide quality and comfort.
She verbalized understanding
-standing IV Morphine and Ativan
-patient restless this morning; IV Morphine x 1 now
-Roxanol PRN
-IV Haldol PRN
-continued discussions on dispo - appreciate CM and Hospice team
Anticipated Discharge: 24 - 48 hours
Subjective/Interval History
-
Date of Service: April 18, 2025
she is restless this morning
Objective Data
-
Vital Signs:
Vital Signs
Temp Pulse Resp BP Pulse Ox
97.5 F 110 20 155/97 94
04/18/25 07:40 04/18/25 08:11 04/18/25 08:11 04/18/25 07:40 04/18/25 10:48
I&O
04/17/25 04/18/25 04/19/25
06:59 06:59 06:59
Intake Total 520 / 520 720 / 720
Balance 520 / 520 720 / 720
Review of Systems
-
History Source: Patient
All other systems: Reviewed and negative
Physical Exam
-
General: Negative Comfortable
HEENT: PERRLA
Respiratory: Wheezes and Rhonchi
Cardiac: Regular Rhythm and S1/S2
GI: Soft, Nontender and Normal Bowel Sounds
Musculoskeletal: Edema, Right Lower Extrem and Edema, Left Lower Extrem
Skin: Warm
Neuro: Sedated (arousable to voice, restless )
Psych: Confused
Data Reviewed
-
Diagnostic Radiology: Report Reviewed by me
Labs: Labs Reviewed by me
[2025-04-18] MEDS: DUONEB 3 ML INH ×2 (11:55→20:29)
--- NOTE | 2025-04-18 12:40 | W.PN.UPDATE ---
Update Note
Progress Note Update
patient seen chart reviewed. spoke with nursing, one to one, nursing metal fabricating supervisor, and cm. the patient was in a delirious state. she was speaking continuously telling me what she needed me to procure for her......white long sleeved vaishnavi, gibson pants ,
striped socks etc etc. she was not angry or agitated. she was lying at the moment naked in the bed half of her falling out of the bed,. noted her one to one that she had been completely coherent and able to talk yesterday. nursing reported she was
flailing at the air seemingly trying to catch something. i am being told that d had demanded patient be on jack dose of ativan and morphine which seems given her condition right now to be too much for he and has caused a delirium. will dc and
change to prn. have called hospice nurse to discuss.
[2025-04-18 12:55] LABS: Glucose - Point of Care 89 mg/dl (70-99)
[2025-04-18] MEDS: HALDOL CONCENTRATE 0.5 MG PO (13:00)
[2025-04-18] MEDS: HALDOL 1 MG IV (13:52)
--- NOTE | 2025-04-18 14:07 | CM ---
CM reviewed chart, patient seen in room, on 1:1
Reviewed with Hospice and Hospitalist, will continue to evaluate patient.
left for patients daughter, Ryan, to discuss need for level two through [facility] if patient to transition to LTC with hospice services.
Family completed financial application for [facility], [facility] unable to review/confirm ability to accept until level two completed.
CM will continue to follow for all d/c planning needs.
Plan; Hospice following, pending LTC placement patient will require level 2
--- NOTE | 2025-04-18 15:00 | PTCARENOTE ---
patient agitated and delirious. hallucinating. new order for Haldol IV. as per Dr. hurt patient do not need ECG with IV Haldol due to hospice. medication given with positive effect.
[2025-04-18 15:55] VITALS: BP 128/78
[2025-04-18 16:59] LABS: Glucose - Point of Care 85 mg/dl (70-99)
[2025-04-18] MEDS: MYCOSTATIN ORAL SUSPENSION PO ×2 (16:59→21:33)
[2025-04-18] MEDS: SEROQUEL 50 MG PO (21:33)
[2025-04-18 21:57] LABS: Glucose - Point of Care 161 mg/dl (70-99)
[2025-04-18 22:38] VITALS: BP 107/70
[2025-04-19] MEDS: MORPHINE SULFATE 2 MG IV ×3 (00:57→11:27)
[2025-04-19] MEDS: FLUSH (NSS) 2 FLUSH IV (00:58)
[2025-04-19] MEDS: DUONEB 3 ML INH (01:42)
[2025-04-19 07:29] VITALS: BP 126/74
[2025-04-19] MEDS: SEROQUEL 25 MG PO (07:37)
[2025-04-19] MEDS: MYCOSTATIN ORAL SUSPENSION 5 ML PO ×2 (07:37→13:44)
[2025-04-19] MEDS: SYMBICORT 160/4.5 MCG INHALER 2 PUFF INH (08:19)
--- NOTE | 2025-04-19 10:49 | HOSPNOTE ---
Spoke with Attending, CM and hospice Attending and all in agreement to admit inpatient hospice today. Admissions was called and patient will be moved to [facility]. The 1:1 can be discontinued. Daughter is in agreement with plan. Patient will remain
inpatient hospice.
--- NOTE | 2025-04-19 10:58 | W.PN.HOSP.TC ---
Addendum entered and electronically signed by Brandy Talley MD 04/19/25 11:17:
patient is persistently short of breath with discomfort, will make IV morphine standing and continue PRN
Original Note:
Today's Communication/Plan
-
DC to inpatient hospice today
Assessment / Plan
Assessment / Plan
Intentional Tylenol overdose
-s/p NAC with stable liver enzymes
-302 discontinued by psychiatry
No indication per psychiatry for acute inpatient involuntary hold
COPD without acute exacerbation
-Continue MDIs
-off steroids
Titrate SpO2 greater than 80 to 92%
Hypokalemia
Refused repletion, K was 2.7 several days ago
Brain meningioma
Declined steroids and Keppra
Patient has been awaiting DC to SNF Hospice with need for more frequent PRN comfort meds, therefore meets criteria for inpatient hospice
DC to inpatient hospice
Anticipated Discharge: Today
Subjective/Interval History
-
Date of Service: April 19, 2025
more calm this morning, seen with daughter at bedside
Objective Data
-
Vital Signs:
Vital Signs
Temp Pulse Resp BP Pulse Ox
97.4 F 88 18 126/74 92
04/19/25 07:29 04/19/25 08:21 04/19/25 08:21 04/19/25 07:29 04/19/25 08:21
I&O
04/18/25 04/19/25 04/20/25
06:59 06:59 06:59
Intake Total 720 / 720 480 / 480
Balance 720 / 720 480 / 480
Review of Systems
-
History Source: Patient
All other systems: Reviewed and negative
Physical Exam
-
General: No Apparent Distress
HEENT: PERRLA
Respiratory: Clear to Auscultation; Negative Wheezes
Cardiac: Regular Rhythm and S1/S2
GI: Soft and Nontender
Musculoskeletal: No Edema
Neuro: AO x 3
Psych: Calm
Data Reviewed
-
Diagnostic Radiology: Report Reviewed by me
Labs: Labs Reviewed by me
--- NOTE | 2025-04-19 11:05 | W.DCSUMMARY ---
Discharge Summary
Discharge Data
Date of Admission: 04/11/25
Date of Discharge: 04/19/25
-
Pending Results: No
Hospital Course
Discharging Physician : Dr. Brandy Talley
Disposition : Inpatient Hospice
Principal Discharge diagnosis : Recurrent Brain Meningioma
Hospital Course :
Ms. Jazmyn Fagan is a 79 yo woman with recurrent brain meningioma stage III, COPD, essential HTN, hypothyroidism on home hospice who had a suicide attempt where she overdosed on Tylenol. Patient then asked home health aide to call 911. She was
brought to the ER, found to have initial acetaminophen level of 252. ALT 38. She was started on NAC and admitted to the ICU for further care. Patient completed NAC protocol with stable liver enzymes. Per further discussions on hospice care,
decision made to pursue hospice at SNF. During this process, patient required more attention for comfort care medications and she now meets criteria for inpatient hospice.
time spent on discharge was 32 minutes
Important imaging findings :
Procedure findings :
Discharge Plan
-
Patient Disposition: Hospice - Inpatient
Discharge Diagnosis/Procedures: Brain Meningioma Recurrent; tylenol overdose
Diet: Regular
Activity: As tolerated
Driving Restrictions: No driving
Activity Restrictions/Additional Instructions:
Wound Care Instructions
Legs: clean with soap and water, alginate, abd pads and kerlix change bid until less drainage, then daily
Leg elevation
Referrals:
Gris Guidry MD [Family Provider, Family Practice]
Prescriptions:
New
ipratropium-albuterol 0.5 mg-3 mg(2.5 mg base)/3 mL Solution For Nebulization
3 ml inhalation R Q4HPRN PRN (Reason: shortness of breath) Qty: 0 0RF
lorazepam 0.5 mg Tablet
0.5 mg PO Q4HPRN PRN (Reason: agitation) Qty: 0 0RF
haloperidol lactate 5 mg/mL Solution
1 mg IV Q4HPRN PRN (Reason: agitation) Qty: 0 0RF
quetiapine 25 mg Tablet
25 mg PO DAILY Qty: 0 0RF
quetiapine 25 mg Tablet
50 mg PO HS Qty: 0 0RF
nystatin 100,000 unit/mL Suspension
5 ml PO QID Qty: 0 0RF
Continued
levothyroxine [Synthroid] 100 mcg Tablet
100 mcg PO HS
fluticasone furoate-vilanterol [Breo Ellipta] 200-25 mcg/dose Blister With Device
1 inh INHALATION R HS
cholecalciferol (vitamin D3) [Vitamin D3] 25 mcg (1,000 unit) Tablet
25 mcg PO QPM
Discontinued
ipratropium-albuterol 0.5 mg-3 mg(2.5 mg base)/3 mL Solution For Nebulization
3 ml INHALATION R QID
azithromycin 250 mg Tablet
250 mg PO QPM
amlodipine [Norvasc] 5 mg Tablet
5 mg PO HS
dexamethasone 2 mg Tablet
2 mg PO BID
budesonide 0.5 mg/2 mL Suspension For Nebulization
0.5 mg INHALATION R BID
levetiracetam [Keppra] 750 mg Tablet
750 mg PO BID
hydrochlorothiazide 12.5 mg Tablet
12.5 mg PO HS
lorazepam [Ativan] 0.5 mg Tablet
0.5 mg PO Q4 PRN (Reason: anxiety )
Lasix
senna 8.6 mg Capsule
8.6 mg PO BID
Discharge Orders:
Discharge Patient (As Directed); Ordered 04/19/25
Ordered By: Brandy Talley
Discharge Date and Time
Print Language: MALTESE
--- NOTE | 2025-04-19 11:15 | W.DS.TRANS ---
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
-
Discharge Instructions:
Discharge Diagnosis/Procedures Brain Meningioma Recurrent; tylenol overdose
Diet Regular
Activity As tolerated
Driving Restrictions No driving
Instructions:
Stand-Alone Forms:
Changes to Home Medications: Yes
Discharge Medications:
DC Medications w/original date entered in [employer]
fluticasone furoate 200 mcg-vilanterol 25 mcg/dose inhalation powder (Breo Ellipta) 1 inh inhalation R HS Lung/Breathing Issues 08/17/18
levothyroxine 100 mcg tablet (Synthroid) 100 mcg PO HS Thyroid 08/17/18
cholecalciferol (vitamin D3) 25 mcg (1,000 unit) tablet (Vitamin D3) 25 mcg PO QPM Supplement 03/13/25
haloperidol lactate 5 mg/mL injection solution 1 mg (0.2 mL) IV Q4HPRN PRN agitation #0 mL 04/19/25
ipratropium 0.5 mg-albuterol 3 mg (2.5 mg base)/3 mL nebulization soln 3 ml inhalation R Q4HPRN PRN shortness of breath #0 mL 04/19/25
lorazepam 0.5 mg tablet 0.5 mg PO Q4HPRN PRN agitation #0 tabs 04/19/25
nystatin 100,000 unit/mL oral suspension 5 ml PO QID #0 mL 04/19/25
quetiapine 25 mg tablet 25 mg PO DAILY #0 tabs 04/19/25
quetiapine 25 mg tablet 50 mg (2 x 25 mg) PO HS #0 tabs 04/19/25
Home Medication Changes
comfort meds
Pending Results: No
--- NOTE | 2025-04-19 11:22 | CM ---
CM reviewed chart, reviewed with Hospitalist, Hospice.
Patient seen bedside with daughter.
Plan to admit to inpatient Hospice services today.
[facility] has declined accepting patient.
Patient will transfer to [facility].
Plan; inpatient hospice
[2025-04-19 11:55] LABS: Glucose - Point of Care 134 mg/dl (70-99)
[2025-04-19 14:49] VITALS: BP 117/71
--- NOTE | 2025-04-19 15:08 | PTCARENOTE ---
Patient received from [facility] reports no discomfort at this time. On 2L NC, daughter at bedside. Chart to be flipped to inpatient hospice.
== END 2025-04-19 15:04 | disposition hospice, inpatient (51) | DRG 918 ==
LOC: 4 WEST ACU 01:50
PROVIDERS: Hospitalist; Nurse Practitioner Primary Care; ADMITTING PHYSICIAN Hospitalist; ATTENDING PHYSICIAN Student in an Organized Health Care Education/Training Program; CONSULT PHYSICIAN Internal Medicine Critical Care Medicine; EMERGENCY PHYSICIAN Emergency Medicine; FAMILY PHYSICIAN Family Medicine; OTHER PHYSICIAN Psychiatry & Neurology Psychiatry
DX: T39.1X2A Poisoning by 4-Aminophenol derivatives, intentional self-harm, initial encounter (principal); C70.9 Malignant neoplasm of meninges, unspecified; R45.851 Suicidal ideations; J44.9 Chronic obstructive pulmonary disease, unspecified; E87.6 Hypokalemia; Z51.5 Encounter for palliative care; F17.210 Nicotine dependence, cigarettes, uncomplicated; Z66 Do not resuscitate; Z78.1 Physical restraint status
CPT/HCPCS: 71045; 80048; 80053; 80076; 80143; 80179; 82077; 82248; 82962; 82977; 83735; 84100; 85025; 85027; 85610; 85730; 87070; 93005; 94640; 96374; 96376; 99285; J0132; J1451; J7030

== ENCOUNTER 2025-04-19 15:04 | Inpatient (IN) | payer OTHER, SELFPAY ==
[2025-04-19 15:00] VITALS: BP 125/67
[2025-04-19] MEDS: DUONEB 3 ML INH ×2 (16:26→19:19)
[2025-04-19] MEDS: MORPHINE SULFATE 2 MG IV ×2 (17:22→20:02)
[2025-04-19] MEDS: MYCOSTATIN ORAL SUSPENSION 5 ML PO ×2 (17:22→21:25)
--- NOTE | 2025-04-19 18:07 | HOSPNOTE ---
Patient admitted to inpatient hospice services. Hospice will visit daily.
--- NOTE | 2025-04-19 18:31 | HPS.HSE ---
Family Physician
-
Family Physician: INTERVIEWE UNKNOWN - PT NOT
Chief Complaint
-
inpatient hospice
History of Present Illness
Ms. Jazmyn Fagan is a 79 yo woman with recurrent brain meningioma stage III, COPD, essential HTN, hypothyroidism on home hospice who had a suicide attempt where she overdosed on Tylenol. Patient then asked home health aide to call 911. She was
brought to the ER, found to have initial acetaminophen level of 252. ALT 38. She was started on NAC and admitted to the ICU for further care. Patient completed NAC protocol with stable liver enzymes. Per further discussions on hospice care,
decision made to pursue hospice at [facility]. During this process, patient required more attention for comfort care medications and she now meets criteria for inpatient hospice.
Medical History
Past Medical History
Past Medical History: Reports Other
Additional Past Medical History:
Grade III Meningioma on Hospice
COPD
Hypertension
Hypothyroidism
Past Surgical History: Reports Other
Additional Past Surgical History:
Craniotomy
Right ALMA
Right Lumpectomy
Social History
Tobacco: Smoker (Current every day smoker.)
Alcohol: Occasional
Drug: None
Family History
Family History: Not pertinent
Allergies / Home Medications
Allergies reflects when Allergies were last updated in [employer].
Home Medications with original date entered in [employer]
Allergy/Medication List:
Allergies
Allergy/AdvReac Type Severity Reaction Status Date / Time
No Known Allergies Allergy Unverified 08/17/18 06:30
Home Medications
fluticasone furoate 200 mcg-vilanterol 25 mcg/dose inhalation powder (Breo Ellipta) 1 inh inhalation R HS Lung/Breathing Issues 08/17/18
ipratropium 0.5 mg-albuterol 3 mg (2.5 mg base)/3 mL nebulization soln 3 ml inhalation R QID Lung/Breathing Issues 08/17/18
levothyroxine 100 mcg tablet (Synthroid) 100 mcg PO HS Thyroid 08/17/18
amlodipine 5 mg tablet (Norvasc) 5 mg PO HS Blood Pressure 03/13/25
azithromycin 250 mg tablet 250 mg PO QPM 03/13/25
budesonide 0.5 mg/2 mL suspension for nebulization 0.5 mg inhalation R BID Lung/Breathing Issues 03/13/25
cholecalciferol (vitamin D3) 25 mcg (1,000 unit) tablet (Vitamin D3) 25 mcg PO QPM Supplement 03/13/25
dexamethasone 2 mg tablet 2 mg PO BID Anti-Inflammatory 03/13/25
hydrochlorothiazide 12.5 mg tablet 12.5 mg PO HS Blood Pressure 03/13/25
levetiracetam 750 mg tablet (Keppra) 750 mg PO BID Seizures 03/13/25
Lasix 04/11/25
lorazepam 0.5 mg tablet (Ativan) 0.5 mg PO Q4 PRN anxiety 04/11/25
sennosides 8.6 mg capsule (senna) 8.6 mg PO BID 04/11/25
Review of Systems
-
History Source: Patient
A 12 point ROS was completed and negative except as noted: Yes
Physical Exam
Vital Signs
Vital Signs
Temp Pulse Resp BP Pulse Ox
97.8 F 24 20 125/67 88
04/19/25 15:00 04/19/25 16:32 04/19/25 15:00 04/19/25 15:00 04/19/25 15:00
Physical Exam
General: Other (79y F in no acute distress.)
HEENT: Moist mucous membranes and PERRLA
Respiratory: Other (Scattered coarse breath sounds. Faint expiratory wheezing throughout.)
Cardiac: S1/S2 and Regular Rhythm; No Murmur
GI: Soft, Non Tender, Non Distended and Normal Bowel Sounds
Musculoskeletal: No Clubbing and No Cyanosis
Neuro: AO x 3
Psych: Calm
Data Reviewed
-
Diagnostic Radiology: Report Reviewed by me
Impression/Plan
-
Recurrent Meningioma
Intentional Tylenol Overdose s/p NAC administration and normalization of liver enzymes
COPD
Hypokalemia
Agitation and Shortness of breath
-admit to inpatient hospice
-standing IV Morphine
-Oral Ativan PRN
-duonebs for comfort (can stop breathing treatments if patient's wishes)
-IV Haldol PRN agitation
76 minutes spent on patient care
[2025-04-19 19:00] VITALS: BP 126/81
[2025-04-19] MEDS: SYMBICORT 160/4.5 MCG INHALER 2 PUFF INH (19:19)
[2025-04-19] MEDS: SEROQUEL 50 MG PO (21:25)
[2025-04-19] MEDS: SYNTHROID 100 MCG PO (21:25)
[2025-04-20] MEDS: MORPHINE SULFATE 2 MG IV ×8 (00:47→21:44)
[2025-04-20] MEDS: DUONEB 3 ML INH ×4 (01:24→21:47)
[2025-04-20] MEDS: ATIVAN 0.5 MG PO (05:11)
[2025-04-20] MEDS: ROBINUL 0.2 MG IV (05:11)
[2025-04-20 07:00] VITALS: BP 125/79
--- NOTE | 2025-04-20 07:30 | W.PN.HOSP.TC ---
Today's Communication/Plan
-
comfort care
Assessment / Plan
Assessment / Plan
Recurrent Meningioma
Intentional Tylenol Overdose s/p NAC administration and normalization of liver enzymes
COPD, moderate, chronic hypoxic respiratory insufficiency
Hypokalemia
Agitation and Shortness of breath
-admit to inpatient hospice
-standing IV Morphine
-IV Valium PRN
-IV Haldol PRN agitation
Anticipated Discharge: > 48 hours
Subjective/Interval History
-
Date of Service: April 20, 2025
she is more confused
Objective Data
-
Vital Signs:
Vital Signs
Temp Pulse Resp BP Pulse Ox
98.1 F 109 20 126/81 88
04/19/25 19:00 04/19/25 19:00 04/19/25 19:00 04/19/25 19:00 04/19/25 19:00
I&O
04/19/25 04/20/25 04/21/25
06:59 06:59 06:59
Intake Total 240 / 240
Balance 240 / 240
Review of Systems
-
History Source: Patient
Physical Exam
-
General: No Apparent Distress
HEENT: PERRLA
Respiratory: Clear to Auscultation; Negative Wheezes
Cardiac: Regular Rhythm and S1/S2
GI: Soft and Nontender
Musculoskeletal: No Edema
Neuro: AO x 3
Psych: Confused (more confused this AM )
Data Reviewed
-
Diagnostic Radiology: Report Reviewed by me
Labs: Labs Reviewed by me
[2025-04-20] MEDS: SYMBICORT 160/4.5 MCG INHALER 2 PUFF INH (07:57)
[2025-04-20] MEDS: MYCOSTATIN ORAL SUSPENSION 5 ML PO ×4 (08:31→21:37)
[2025-04-20] MEDS: SEROQUEL 25 MG PO (08:31)
--- NOTE | 2025-04-20 10:39 | HOSPNOTE ---
network cable installer visit patient in her hospital room. Patient was lying in bed and agitated with the hospital gown. Patient was trying to take gown off and network cable installer asked her if she was in pain and patient repled all the time. Patient was stating that she
was on a ship and asked network cable installer to tell her daughter to come into the room. Daughter was not present. Nurses reported that patient was hallucinating all morning. Asl Interpreter asked patient if she would like to pray and patient agreed to prayer.
Asl Interpreter provided spiritual and emotional support through presence, touch and prayer.
--- NOTE | 2025-04-20 11:59 | CM ---
Patient seen at bedside on . Patient on [facility] hospice with [facility] hospice. Patient has been admitted to on 04/11/25. Patient was previously living alone with 24/7 caregivers. The home was a one story home with basement. Patient had been on
hospice service with hospice and revoked the hospice at that time. Patient is now back on Hospice; GIP status. CM will continue to follow for discharge planning needs.
Plan; [facility] hospice.
--- NOTE | 2025-04-20 13:46 | HOSPNOTE ---
Patient is resting comfortably at this time of my visit. Encouraged nurse to medicate with morphine and valium so patient does not get agitated and to help with shortness of breath. Patient will most likely be started on a morphine drip per
protocol. Patient continues to be inpatient appropriate for agitation and shortness of breath requiring IV medications. Patient will be seen daily.
[2025-04-20] MEDS: HALDOL 1 MG IV ×2 (17:28→21:36)
[2025-04-20 19:52] VITALS: BP 124/83
[2025-04-20] MEDS: SEROQUEL 50 MG PO (21:37)
[2025-04-20] MEDS: SYNTHROID 100 MCG PO (21:37)
[2025-04-20] MEDS: VALIUM INJECTION 2 MG IV (23:34)
[2025-04-21] MEDS: MORPHINE SULFATE 2 MG IV ×4 (00:12→05:08)
[2025-04-21] MEDS: MORPHINE 100 IV (01:50)
[2025-04-21] MEDS: ROBINUL 0.2 MG IV ×2 (04:14→12:00)
[2025-04-21] MEDS: VALIUM INJECTION 2 MG IV (06:04)
[2025-04-21 07:00] VITALS: BP 118/71
[2025-04-21] MEDS: MORPHINE SULFATE 4 MG IV ×4 (07:31→13:45)
[2025-04-21] MEDS: SEROQUEL 25 MG PO (07:36)
[2025-04-21] MEDS: MYCOSTATIN ORAL SUSPENSION 5 ML PO (07:37)
[2025-04-21] MEDS: HALDOL 1 MG IV (08:06)
--- NOTE | 2025-04-21 09:06 | W.PN.HOSP.TC ---
Today's Communication/Plan
-
comfort care
Assessment / Plan
Assessment / Plan
Recurrent Meningioma
Intentional Tylenol Overdose s/p NAC administration and normalization of liver enzymes
COPD, moderate, chronic hypoxic respiratory insufficiency
Hypokalemia
Agitation and Shortness of breath
-admit to inpatient hospice
-increasingly restless and IV morphine gtt started overnight, patient comfortably sleeping this morning
-IV Valium PRN
-IV Haldol PRN agitation
DNR
Anticipated Discharge: 24 - 48 hours
Subjective/Interval History
-
Date of Service: April 21, 2025
patient resting comfortably
Objective Data
-
Vital Signs:
Vital Signs
Temp Pulse Resp BP Pulse Ox
97.4 F 115 20 124/83 91
04/20/25 19:52 04/20/25 19:52 04/20/25 19:52 04/20/25 19:52 04/20/25 19:52
I&O
04/20/25 04/21/25 04/22/25
06:59 06:59 06:59
Intake Total 240 / 240 890 / 890
Output Total 0 / 0
Balance 240 / 240 890 / 890
Review of Systems
-
History Source: Patient
All other systems: Reviewed and negative
Physical Exam
-
General: No Apparent Distress
HEENT: PERRLA
Respiratory: Clear to Auscultation; Negative Wheezes
Cardiac: Regular Rhythm and S1/S2
GI: Soft and Nontender
Musculoskeletal: No Edema
Neuro: Sedated
Psych: Calm
Data Reviewed
-
Diagnostic Radiology: Report Reviewed by me
Labs: Labs Reviewed by me
[2025-04-21] MEDS: MYCOSTATIN ORAL SUSPENSION PO ×2 (12:35→17:32)
--- NOTE | 2025-04-21 12:36 | HOSPNOTE ---
Patient is lethargic appears comfortable now that a PRN dose of morphine and valium with good relief. Patient is now on step 3 morphine drip 4mg/hr. Patient at times becomes very agitated so we need to continue medicating. Patient continues to be
inpatient appropriate for management of pain and shortness of breath and agitation. Patient will be seen daily.
[2025-04-21] MEDS: TRANSDERM-SCOP 1 PATCH TRANSDERM (14:12)
--- NOTE | 2025-04-21 14:26 | PTCARENOTE ---
suction began at bedside. pt with white frothy secretions, prn robinul given and scopolamine patch applied to posterior R ear. pt with round distended belly. bladder scanned this morning at 0715 for 186 and this afternoon for 164. pt now with upper
b/l thigh edema +1. daughter at bedside and educated on nonverbal signs of dyspnea and pain. pt remains on step 3 morphine gtt at this time.
--- NOTE | 2025-04-21 19:19 | W.PN.DEATH ---
Pronouncement of
-
Called to see patient to pronounce.
No spontaneous heart tones or respirations noted.
Patient not responsive to verbal stimuli.
Patient is pronounced .
Time of : 18:35
Date of : 04/21/25
Cause of : Meningioma
Family Notified: Yes (at bed side)
--- NOTE | 2025-04-21 20:47 | PTCARENOTE ---
Pt just prior to beginning of hift. Pronounced by Dr. Kim. Daughter at bedside. [facility] notified by dayshift RN. IV removed. Belongings taken home by daughter. Postmortem care done and body taken to morgue by [facility]am.
--- NOTE | 2025-04-22 07:04 | W.DCSUMMARY ---
Discharge Summary
Discharge Data
Date of Admission: 04/19/25
Date of Discharge: 04/21/25
-
Pending Results: No
Hospital Course
Time of : 18:35
Date of : 04/21/25
Cause of : Meningioma
Hospital Course :
Ms. Jazmyn Fagan is a 79 yo woman with recurrent brain meningioma stage III, COPD, essential HTN, hypothyroidism on home hospice who had a suicide attempt where she overdosed on Tylenol. Patient then asked home health aide to call 911. She was
brought to the ER, found to have initial acetaminophen level of 252. ALT 38. She was started on NAC and admitted to the ICU for further care. Patient completed NAC protocol with stable liver enzymes. Per further discussions on hospice care,
decision made to pursue hospice at SNF. During this process, patient required more attention for comfort care medications and met criteria for inpatient hospice. She was maintained comfortable, eventually placed on an IV morphine gtt. She at
18:35 on 04/21/25.
Important imaging findings :
Procedure findings :
Discharge Plan
-
Patient Disposition:
Date/Time
Date/Time: 04/21/25 20:50
Discharge Date and Time
Discharge Date/Time: 04/21/25 20:50
Print Language: INDONESIAN
== END 2025-04-21 20:50 | disposition expired | DRG 951 ==
LOC: 2 NORTH 15:04
PROVIDERS: ADMITTING PHYSICIAN Student in an Organized Health Care Education/Training Program
DX: Z51.5 Encounter for palliative care (principal); D32.0 Benign neoplasm of cerebral meninges; E03.9 Hypothyroidism, unspecified; I10 Essential (primary) hypertension; J44.9 Chronic obstructive pulmonary disease, unspecified; F17.200 Nicotine dependence, unspecified, uncomplicated; E87.6 Hypokalemia
CPT/HCPCS: 94640